=== PATIENT | male | born 1965 | race Caucasian/White ===

== ENCOUNTER 2018-11-10 23:53 | Observation (INO) | payer OTHER, BC ==
[~2018-11-10] VITALS: Ht 177.8 cm; Wt 90.7 kg
[2018-11-10 23:58] VITALS: BP_SYST 129
--- NOTE | 2018-11-10 23:58 | NUR ---
Pt BIB BLS, placed to ER bed 05, to gown. Per BLS, 's department called 911 as they found jpt wandering outside in the cold with only shorts on. Pt was approached and appeared confused. Pt arrives AAOX2, dishoveled only wearing thin shorts. When asked pt what he was doing, pt states "I was looking for photos."
--- NOTE | 2018-11-11 00:15 | NUR ---
Dr. Keene at bedside.
[2018-11-11 00:27] LABS: BASOPHILS # (AUTO) 0.1 K/uL (0.0-0.2); BASOPHILS % (AUTO) 0.9 % (0.0-2.0); EOSINOPHILS # (AUTO) 0.1 K/uL (0.0-0.4); EOSINOPHILS % (AUTO) 1.1 % (0.0-4.0); HEMATOCRIT 44.4 % (36-54); HEMOGLOBIN 14.9 g/dL (14.0-18.0); LYMPHOCYTES # (AUTO) 1.4 K/uL (1.0-5.5); LYMPHOCYTES % (AUTO) 19.7 % (20.5-51.5); MEAN CORPUSCULAR HEMOGLOBIN 32 pg (27-31); MEAN CORPUSCULAR HGB CONC 34 % (32-36); MEAN CORPUSCULAR VOLUME 96 fL (79.0-98.0); MONOCYTES # (AUTO) 0.4 K/uL (0.0-1.0); MONOCYTES % (AUTO) 5.2 % (1.7-9.3); NEUTROPHILS # (AUTO) 5.1 K/uL (1.8-7.7); NEUTROPHILS % (AUTO) 73.1 % (40.0-70.0); PLATELET COUNT (AUTO) 280 K/uL (130-430); RED BLOOD CELL COUNT(AUTO) 4.65 MIL/uL (4.2-6.2); RED CELL DISTRIBUTION WIDTH 12.5 % (9.0-15.0); WHITE BLOOD COUNT (AUTO) 7.1 K/uL (4.8-10.8)
[2018-11-11 00:33] LABS: ANION GAP 7 (5-15); CALCIUM 8.7 mg/dL (8.4-11.0); CHLORIDE 102 mmol/L (98-107); CREATININE 0.96 mg/dL (0.55-1.30); GLUCOSE 115 mg/dL (70-99); SODIUM SERUM 140 mmol/L (136-145); UREA NITROGEN, BLOOD 9 mg/dL (8-21)
--- NOTE | 2018-11-11 00:35 | NUR ---
Pt comes out of room wrapped in blankets. Pt reoriented to room.
[2018-11-11 00:38] LABS: ALANINE AMINOTRANSFERASE 25 U/L (12-78); ALBUMIN 3.2 g/dL (3.4-4.8); ASPARTATE AMINOTRANSFERASE 21 U/L (10-37); TOTAL BILIRUBIN 0.2 mg/dL (0.0-1.0)
[2018-11-11 00:44] LABS: ALCOHOL, BLOOD < 3 mg/dL (<10); GFR AFRICAN AMERICAN 105 mL/min (>90)
[2018-11-11 00:46] LABS: POTASSIUM 2.8 mmol/L (3.5-5.1)
--- NOTE | 2018-11-11 00:46 | NUR ---
Potassium 2.[address] Harrington. No new orders at this time.
[2018-11-11 00:52] LABS: ACETAMINOPHEN < 1 ug/mL (1-30)
--- NOTE | 2018-11-11 00:55 | NUR ---
Pt provided with urinal. Urine sample collected and sent to lab.
[2018-11-11] MEDS ORDERED: POTASSIUM CHLORIDE 20 MEQ TAB.PRT.SR PO ONE ×2 (01:15→16:15)
[2018-11-11] MEDS ORDERED: NACL 0.9% 1,000 ML IV ONE (01:15)
--- NOTE | 2018-11-11 01:15 | NUR ---
# 18 gauge angiocath placed to LAC. Use of asceptic technique. Opsite placed over site. Blood return noted. Blood for lab drawn from site. Flushed with 10 cc of normal saline. No evidence of infiltration noted. Patient tolerated well.
--- NOTE | 2018-11-11 01:40 | NUR ---
Patient will be admitted to care of [facility]. Admitted to Tele Obs unit. Will go to room 135. Summary report printed. Report will be given at bedside.
--- NOTE | 2018-11-11 02:36 | NUR ---
ADMISSION: The patient, TIMOTHY GOMEZ, 53 y/o, M admitted by RAJAN RANDLE MD, was given written information regarding hospital policies, unit procedures and contact persons.
--- NOTE | 2018-11-11 02:45 | NUR ---
SPONGE BATH: PT IS VERY DIRTY AND SMELLY ;SPONGE BATH / PERICARE GIVEN ,PT IS SHAKING , PT STATED HE IS VERY COLD ; VITALS ARE STABLE ; PT IS VERY ANXIOUS ALSO ;ASSESSMENT DONE ; IV ON THE LEFT AC 18 G , SL , NO S/S OF ANY INFILTRATION NOTED ; BED IN LOW AND LOCK POSIITON , CALL ZIEGLER IN REACH ; WILL CONTINUE TO MONITOR PT .
[2018-11-11 03:05] VITALS: BP_SYST 155
--- NOTE | 2018-11-11 03:10 | NUR ---
MEDICATION BOTTLES: PT BRING MULTIPLE BOTTLE OF MEDICATION MOST OF THEM ARE EMPTY , AMBIEN , ATIVAN AND DULOXETINE BOTTLE HAS MEDICATION , REMOVED THOSE BOTTLES WITH PTS PERMISSION FROM BED SIDE COUNTED WITH THE HELP OF EMMA MCCARTNEY ; WILL SENT TO PHARMACY IN AM
[2018-11-11 04:03] LABS: BARBITURATE, URINE NEGATIVE (NEG <=200); BENZODIAZEPINE, URINE POSITIVE (NEG <=150); CANNABINOID, URINE NEGATIVE (NEG <=50); COCAINE, URINE NEGATIVE (NEG <=150); METHAMPHETAMINES SCREEN,URINE NEGATIVE (NEG <=500); OPIATE, URINE NEGATIVE (NEG <=100); PHENCYCLIDINE SCREEN,URINE NEGATIVE (NEG <=25); UR TRICYCLIC ANTIDEPRESSANTS NEGATIVE (NEG <=300); URINE AMPHETAMINE NEGATIVE (NEG <=500); URINE METHADONE NEGATIVE (NEG <=200); URINE OXYCODONE SCREEN NEGATIVE (NEG <=100); URINE PROPOXYPHENE SCREEN NEGATIVE (NEG <=300)
--- NOTE | 2018-11-11 04:18 | NUR ---
PAGED PAGED WRITER PRODUCER PHYSICIAN, DR. RANDLE @ [phone], IN REGARD TO ORDERS AND SPOKE WITH LINUS.
--- NOTE | 2018-11-11 04:43 | NUR ---
MD CALLED : DR RANDLE CALLED BACK , INFORMED MD THAT PT IS C/O ACID REFLEX , STATED SHE WILL ENTER ORDER , ALSO INFORMED MD THAT PT IS VERY ANXIOUS AND AGITATED , GETTING OUT OF BED AND CONTINUOUSLY ASKING FOR SLEEPING PILL , STATED SHE WILL ENTER ORDER , ALSO NOTIFIED MD THAT PTS K 2.8 ONLY ER ONLY GIVEN K DUR 40 MEQ PO , STATED WILL REPEAT LABS AND WILL SEE . MD STATED SHE WILL ENTER ALL ORDERS .NOTIFIED PT .
[2018-11-11] MEDS ORDERED: ALBUTEROL SULFATE 0.083% 2.5 MG/3 ML VIAL.NEB INH PRN (04:45)
[2018-11-11] MEDS ORDERED: HYDROcodone/ACETAMIN 5-325 MG TAB (NORCO/ VICODIN) PO PRN (04:45)
[2018-11-11] MEDS ORDERED: POTASSIUM CHLORIDE 10 MEQ TAB.PRT.SR PO ONE (04:45)
[2018-11-11] MEDS ORDERED: ACETAMINOPHEN 325 MG TABLET PO PRN (04:45)
[2018-11-11] MEDS ORDERED: ONDANSETRON HCL 4 MG/2 ML VIAL IVP PRN (04:45)
[2018-11-11] MEDS ORDERED: LORazepam 2 MG/ML VIAL IVP ONE (04:45)
[2018-11-11] MEDS: PANTOPRAZOLE SODIUM 40 MG/VIAL (PROTONIX) IVP SCH ×2 (05:18→08:08)
[2018-11-11] MEDS: NACL 0.9% 1,000 ML IV SCH ×3 (05:25→17:23)
--- NOTE | 2018-11-11 05:25 | NUR ---
MEDICATION: DR RANDLE ORDERED ATIVAN 1 MG IVPUSH , K DUR 30 MEQ PO,AND PROTONIX , MEDICATED BY A.N . IV FLUID STARTED PER ORDER .
[2018-11-11 05:28] VITALS: BP_SYST 155
--- NOTE | 2018-11-11 06:50 | NUR ---
RN NOTES: PT IS SLEEPING , NOT IN ANY ACUTE DISTRESS; RESPIRATION IS EVEN AND NON LABORED ; WILL CONTINUE TO MONITOR PT .
--- NOTE | 2018-11-11 07:25 | NUR ---
CLOSING NOTES: REPORT GIVEN TO RN AT BEDSIDE , PT IS SLEEPING COMFORTABLY ,PT NOT IN ANY ACUTE DISTRESS.ALL NEEDS MET ; CALL ZIEGLER IN REACH . BED ALARM IS ON . PTS MEDICATION ENDORSED TO PHARMACY BY ADMITTING NURSE EMMA
--- NOTE | 2018-11-11 07:25 | NUR ---
Opening Note patient resting in bed, eyes closed, breathing unlabored and symmetrical, positioned on side, IV site patent, safety precautions in place, bed in lowest position with 3 side rails up, bedside table and call light within reach, room close to station, will continue to monitor
[2018-11-11 07:30] VITALS: BP_SYST 134
[2018-11-11 08:24] LABS: BASOPHILS % (AUTO) 0.3 % (0.0-2.0); EOSINOPHILS % (AUTO) 0.6 % (0.0-4.0); HEMATOCRIT 43.3 % (36-54); HEMOGLOBIN 14.4 g/dL (14.0-18.0); LYMPHOCYTES # (AUTO) 1.2 K/uL (1.0-5.5); LYMPHOCYTES % (AUTO) 17.2 % (20.5-51.5); MEAN CORPUSCULAR HEMOGLOBIN 32 pg (27-31); MEAN CORPUSCULAR HGB CONC 33 % (32-36); MEAN CORPUSCULAR VOLUME 96 fL (79.0-98.0); MONOCYTES # (AUTO) 0.3 K/uL (0.0-1.0); MONOCYTES % (AUTO) 4.9 % (1.7-9.3); NEUTROPHILS # (AUTO) 5.6 K/uL (1.8-7.7); PLATELET COUNT (AUTO) 279 K/uL (130-430); RED BLOOD CELL COUNT(AUTO) 4.52 MIL/uL (4.2-6.2); RED CELL DISTRIBUTION WIDTH 12.8 % (9.0-15.0); WHITE BLOOD COUNT (AUTO) 7.1 K/uL (4.8-10.8)
[2018-11-11 08:34] LABS: ANION GAP 6 (5-15); CALCIUM 8.6 mg/dL (8.4-11.0); CHLORIDE 104 mmol/L (98-107); CREATININE 0.88 mg/dL (0.55-1.30); GLUCOSE 101 mg/dL (70-99); POTASSIUM 3.4 mmol/L (3.5-5.1); SODIUM SERUM 141 mmol/L (136-145); UREA NITROGEN, BLOOD 6 mg/dL (8-21)
[2018-11-11 08:36] LABS: GFR AFRICAN AMERICAN 116 mL/min (>90)
[2018-11-11 08:45] LABS: ALANINE AMINOTRANSFERASE 27 U/L (12-78); ALBUMIN 3.2 g/dL (3.4-4.8); ASPARTATE AMINOTRANSFERASE 19 U/L (10-37); TOTAL BILIRUBIN 0.3 mg/dL (0.0-1.0)
--- NOTE | 2018-11-11 09:11 | NUR ---
CONSULTATION CALLED REASON FOR CONSULTATION:CONFUSION WAS CONSULT CALLED?Y PERSON WHO WAS NOTIFIED:IBIS CONSULTING PHYSICIAN:CARLITO PHIPPS POLYMER SCIENTIST SPECIALTY:NEURO POLYMER SCIENTIST PHONE NUMBER:[phone] ORDERING PHYSICIAN:AGA ORTEGA
--- NOTE | 2018-11-11 09:30 | NUR ---
Patient Resting in Bed eyes closed, breathing unlabored on room air, does not want to eat breakfast at this time, encouraged patient to eat breakfast but does not want to at this time, IV fluids infusing at this time, educated patient on safety precautions, verbalized understanding, call light and bedside table left within reach, room close to station, will continue to monitor patient
[2018-11-11] MEDS ORDERED: LORA-258 PO (11:14)
[2018-11-11] MEDS ORDERED: MIRT7.5T11 PO (11:14)
[2018-11-11] MEDS ORDERED: ZOLP10TA6 PO (11:15)
[2018-11-11] MEDS ORDERED: DULO60CA41 PO (11:16)
[2018-11-11] MEDS ORDERED: TRAZ300T11 PO (11:18)
[2018-11-11] MEDS ORDERED: TRAM100T34 PO (11:19)
--- NOTE | 2018-11-11 11:30 | NUR ---
IV PLACEMENT: #22 gauge angiocath placed to right hand by Reema TRAVIS. Use of asceptic technique. Opsite placed over site. Blood return noted. Flushed with 10 cc of normal saline. No evidence of infiltration noted. Patient tolerated well. patient was encouraged to practice saftey so IV catheter does not become dislodged again, verbalized understanding
[2018-11-11 12:10] VITALS: BP_SYST 146
--- NOTE | 2018-11-11 13:10 | NUR ---
Patient in Bed at this time, does not want to eat lunch at this time, denies pain, speech is slightly garbled, no complaints of pain at this time, educated patient on safety precautions, verbalized understanding, call light and bedside table left within reach, room close to station, will continue to monitor patient
--- NOTE | 2018-11-11 14:43 | NUR ---
Social Service Note: Pt referred to forensic social worker by physician due to homelessness and confusion. PHOTO TUBE ASSEMBLER met with pt at bedside; pt appears to be alert and oriented; pt cooperative with assessment and answering questions appropriately. Pt states that he is not sure how he ended up at the hospital. Pt denies any previous occurrences of confusion/disorientation. Pt states that he is currently staying in his motor-home; pt states that it is currently parked at [employer] [address]. Pt states that he and his are currently but they are going to therapy. Pt denies any history of mental illness; pt states that he is followed by Dr. Martínez and sees Dr. Martínez about once a month; pt cannot recall why he sees Dr. Martínez but states that he takes Ativan and Zolpidem. Pt denies any drug or alcohol use. PHOTO TUBE ASSEMBLER spoke with pt about homeless resources; pt states that he is not homeless and does not need any resources. PHOTO TUBE ASSEMBLER will remain available for support and will follow up as needed.
--- NOTE | 2018-11-11 15:45 | NUR ---
Dr. Egan Rounds at this time, will follow through with MD rios
--- NOTE | 2018-11-11 15:58 | NUR ---
Paged Dr. Meehan at this time to inquire if patient will be made inpatient status, will inform him about Dr. Egan's consultation, will await call back
[2018-11-11 16:04] VITALS: BP_SYST 135
--- NOTE | 2018-11-11 16:06 | NUR ---
Spoke with Dr. Meehan/Observation Status asked if he would like to keep the patient as observation or as inpatient, stated that patient can still stay over night and be considered as observation, stated to keep patient status as observation and will deal with it tomorrow. Also received other orders, will continue to monitor patient
[2018-11-11] MEDS ORDERED: OMEPRAZOLE 20 MG CAPSULE.DR (PriLOSEC) PO SCH (16:15)
--- NOTE | 2018-11-11 16:25 | NUR ---
Potassium Given At this time educated patient regarding med, verbalized understanding, informed him that gastric acid medication will be given later as scheduled, patient verbalized understanding, he is sitting up in bed, legs dangling, IV site remains patent, 350 mL taken from urinal. Educated patient on how to use hospital phone, verbalized understanding. Educated patient on safety and use of call light for assistance, verbalized understanding, call light and bedside table left within reach, will continue to monitor patient
--- NOTE | 2018-11-11 17:29 | NUR ---
Patient Being Taken to CT at this time, will assess when he returns
--- NOTE | 2018-11-11 18:55 | NUR ---
Closing Note patient resting in bed, eyes closed, breathing unlabored, symmetrical chest expansion, IV fluids infusing, site patent, safety precautions in place, room close to station, bedside table and call light left within reach, will endorse to nightclub manager nurse
--- NOTE | 2018-11-11 19:15 | NUR ---
OPENING NOTES Pt is awake, alert while lying in bed. Pt on IVF NS at 100ml/hr and infusing well on right hand G22. Pt states, "I need a sleeping pill because I couldn't sleep." Informed pt that I will call and inform the doctor. No complains of pain and no signs of acute distress noted. Encouraged to use call light when needed. Safety precautions in place with 3 side rails up, bed alarm on and at lowest level. Will continue to monitor.
[2018-11-11 20:05] VITALS: BP_SYST 136
[2018-11-11] MEDS: OMEPRAZOLE 20 MG CAPSULE.DR (PriLOSEC) PO SCH (20:10)
--- NOTE | 2018-11-11 20:15 | NUR ---
SPOKE TO DR. GUILLEN Spoke to Dr. Guillen over the phone, informed him about pt having trouble sleeping. Dr. Guillen ordered Restoril 15mg PO QHS. Read back order and will carry out.
[2018-11-11] MEDS ORDERED: TEMAZEPAM 15 MG CAPSULE PO SCH (21:00)
--- NOTE | 2018-11-11 23:00 | NUR ---
RESTING Pt is resting in bed with both eyes closed. With visible chest rise and fall with unlabored breathing noted. NO signs of acute distress noted. Safety precautions in place. Will continue to monitor.
--- NOTE | 2018-11-12 00:58 | NUR ---
PSYCH CONSULT CALLED Consult for Dr. Nuñez was called, he is out till 11/24/18; Dr. Rosales is business continuity global director [phone] RE psychosis Ava
--- NOTE | 2018-11-12 02:00 | NUR ---
RESTING Pt is resting in bed with both eyes closed. With visible chest rise and fall with unlabored breathing noted. No complains at this time. No signs of acute distress or SOB noted. Safety precautions in place. Will continue to monitor.
[2018-11-12 02:19] VITALS: BP_SYST 136
[2018-11-12] MEDS: NACL 0.9% 1,000 ML IV SCH (03:12)
--- NOTE | 2018-11-12 04:42 | NUR ---
RESTING Pt is resting in bed with both eyes closed. With visible chest rise and fall with unlabored breathing noted. NO signs of acute distress noted. Call light with pt and safety precautions in place. Will continue to monitor.
--- NOTE | 2018-11-12 06:25 | NUR ---
CLOSING NOTES Pt is resting in bed with both eyes closed. With visible chest rise and fall with unlabored breathing noted. NO signs of acute distress noted. All needs attended throughout the shift. Call light with pt and safety precautions in place. Will endorse to day shift nurse.
[2018-11-12 07:50] VITALS: BP_SYST 138
--- NOTE | 2018-11-12 07:50 | NUR ---
INITIAL ROUNDS Received pt AAOx4, no s/s resp distress, no c/o pain or discomfort. Plan of care for the day reviewed with pt-pt verbalized his understanding. IVF infusing well to right hand at ordered rate with no s/s infiltration to site. Pain management, low potassium, skin and safety discussed-teach back done. Pt observed ambulating to bathroom with steady gait. Call light within reach.
[2018-11-12] MEDS: OMEPRAZOLE 20 MG CAPSULE.DR (PriLOSEC) PO SCH (08:34)
--- NOTE | 2018-11-12 08:39 | NUR ---
Nutrition Update Nigel Scale 18 noted. Pt admitted for hypokalemia Diet: regular diet BMI: 28.7 kg/m2 RD to follow per nutrition care standards.
--- NOTE | 2018-11-12 10:22 | NUR ---
ROUNDS Pt resting quietly in bed with no s/s resp distress, no c/o pain or discomfort. No changes. Pt currently being seen by Dr. Meehan. Call light within reach.
[2018-11-12 11:19] VITALS: BP_SYST 132
--- NOTE | 2018-11-12 11:32 | NUR ---
AMBULATION Pt ambulated around nursing station with steady gait, no c/o dizziness or shortness of breath. Pt tolerated well.
[2018-11-12 11:34] VITALS: BP_SYST 138
--- NOTE | 2018-11-12 12:20 | NUR ---
PATIENT DISCHARGED Patient given medication reconciliation form and D/C instructions. Exit Care on Hypokalemia & Confusion explained and provided. Patient verbalized his understanding. MD discussed with patient the results and treatment provided. Ambulatory with steady gait for discharge to home. Patient in stable condition, ID band removed. IV catheter removed, intact and dressing applied, no active bleeding. Rx of given. All belongings sent with patient. Patient left floor ambulatory to private vehicle with his Jaqueline in no distress.
== END 2018-11-12 12:20 | disposition home or self-care (01) ==
LOC: SED 23:53 → STU 11-11 01:32
PROVIDERS: ADMIT Internal Medicine; ATTEND Internal Medicine
DX: R41.0 Disorientation, unspecified (principal); G35 Multiple sclerosis; K21.9 Gastro-esophageal reflux disease without esophagitis; J34.2 Deviated nasal septum; E87.6 Hypokalemia; F32.9 Major depressive disorder, single episode, unspecified; F41.9 Anxiety disorder, unspecified; Z59.0 Homelessness
CPT/HCPCS: 36415; 70450; 80053; 80307; 82607; 83735; 84443; 84484; 85025; 93005; 96361 ×2; 96374; 96375; 99285; C9113; G0378 ×2; G0480; G0481; G0482; J2060; J7030 ×2; 96360

== ENCOUNTER 2019-01-12 00:08 | Inpatient (IN) | payer OTHER, BC ==
[~2019-01-12] VITALS: Ht 177.8 cm; Wt 90.3 kg
[~2019-01-12 00:08] MED LIST: DULO60CA41 PO; LORA-258 PO; MIRT7.5T11 PO; TRAM100T34 PO; TRAZ300T11 PO; ZOLP10TA6 PO
[2019-01-12 00:13] VITALS: BP_SYST 157
[2019-01-12] MEDS ORDERED: NACL 0.9% 1,000 ML IV ONE (00:30)
[2019-01-12] MEDS ORDERED: ONDANSETRON HCL 4 MG/2 ML VIAL IVP ONE (00:30)
[2019-01-12] MEDS ORDERED: MAG HYDROX/AL HYDROX/SIMETH 30 ML, BELLADONNA ALKALOIDS/PHENOBARB 10 ML, LIDOCAINE VISC... PO ONE ×3 (01:00)
[2019-01-12] MEDS ORDERED: MORPHINE 4 MG/ML INJ. SYRINGE IVP ONE ×2 (01:00→01:45)
[2019-01-12 01:09] LABS: ANION GAP 10 (5-15); CALCIUM 8.9 mg/dL (8.4-11.0); CHLORIDE 102 mmol/L (98-107); CREATININE 1.04 mg/dL (0.55-1.30); GLUCOSE 105 mg/dL (70-99); SODIUM SERUM 143 mmol/L (136-145); UREA NITROGEN, BLOOD 11 mg/dL (8-21)
[2019-01-12 01:14] LABS: ALANINE AMINOTRANSFERASE 42 U/L (12-78); ALBUMIN 3.5 g/dL (3.4-4.8); ASPARTATE AMINOTRANSFERASE 40 U/L (10-37); LIPASE 224 U/L (73-393); TOTAL BILIRUBIN 0.4 mg/dL (0.0-1.0)
[2019-01-12 01:16] LABS: GFR AFRICAN AMERICAN 95 mL/min (>90); POTASSIUM 2.8 mmol/L (3.5-5.1)
[2019-01-12 01:17] LABS: ALCOHOL, BLOOD < 3 mg/dL (<10)
[2019-01-12 01:22] LABS: BILIRUBIN,URINE NEGATIVE (NEGATIVE); BLOOD, URINE NEGATIVE (NEGATIVE); CLARITY/URINE CLEAR (CLEAR); COLOR,URINE YELLOW (YELLOW); GLUCOSE,URINE NEGATIVE (NEGATIVE); KETONES,URINE NEGATIVE (NEGATIVE); LEUKOCYTE ESTERASE ,URINE NEGATIVE (NEGATIVE); NITRITE, URINE NEGATIVE (NEGATIVE); PH,URINE 6.5 (5.0-8.0); PROTEIN URINE NEGATIVE (NEGATIVE)
[2019-01-12 01:26] LABS: HEMATOCRIT 41.7 % (36-54); HEMOGLOBIN 14.5 g/dL (14.0-18.0); RED BLOOD CELL COUNT(AUTO) 4.53 MIL/uL (4.2-6.2); WHITE BLOOD COUNT (AUTO) 11.1 K/uL (4.8-10.8)
[2019-01-12 01:27] LABS: BASOPHILS % (AUTO) 0.3 % (0.0-2.0); EOSINOPHILS % (AUTO) 0.3 % (0.0-4.0); LYMPHOCYTES # (AUTO) 1.9 K/uL (1.0-5.5); LYMPHOCYTES % (AUTO) 17.4 % (20.5-51.5); MEAN CORPUSCULAR HEMOGLOBIN 32 pg (27-31); MEAN CORPUSCULAR HGB CONC 35 % (32-36); MEAN CORPUSCULAR VOLUME 92 fL (79.0-98.0); MONOCYTES # (AUTO) 0.9 K/uL (0.0-1.0); MONOCYTES % (AUTO) 7.7 % (1.7-9.3); NEUTROPHILS # (AUTO) 8.2 K/uL (1.8-7.7); NEUTROPHILS % (AUTO) 74.3 % (40.0-70.0); PLATELET COUNT (AUTO) 319 K/uL (130-430); RED CELL DISTRIBUTION WIDTH 14.1 % (9.0-15.0)
[2019-01-12] MEDS ORDERED: METOCLOPRAMIDE HCL 10 MG/2 ML VIAL IVP ONE (01:30)
[2019-01-12] MEDS ORDERED: POTASSIUM CHLORIDE 20 MEQ TAB.PRT.SR PO ONE ×2 (01:30→12:00)
[2019-01-12 01:31] LABS: BARBITURATE, URINE NEGATIVE (NEG <=200); BENZODIAZEPINE, URINE POSITIVE (NEG <=150); CANNABINOID, URINE NEGATIVE (NEG <=50); COCAINE, URINE NEGATIVE (NEG <=150); METHAMPHETAMINES SCREEN,URINE NEGATIVE (NEG <=500); OPIATE, URINE NEGATIVE (NEG <=100); PHENCYCLIDINE SCREEN,URINE NEGATIVE (NEG <=25); UR TRICYCLIC ANTIDEPRESSANTS NEGATIVE (NEG <=300); URINE AMPHETAMINE NEGATIVE (NEG <=500); URINE METHADONE NEGATIVE (NEG <=200); URINE OXYCODONE SCREEN NEGATIVE (NEG <=100); URINE PROPOXYPHENE SCREEN NEGATIVE (NEG <=300)
[2019-01-12] MEDS ORDERED: LORazepam 2 MG/ML VIAL (FOR ER USE) IVP ONE (02:00)
[2019-01-12 06:51] VITALS: BP_SYST 137
[2019-01-12 07:49] VITALS: BP_SYST 143
[2019-01-12 10:29] LABS: CALCIUM 8.5 mg/dL (8.4-11.0); CREATININE 1.09 mg/dL (0.55-1.30)
[2019-01-12] MEDS ORDERED: ONDANSETRON HCL 4 MG/2 ML VIAL IVP PRN (11:30)
[2019-01-12 12:02] VITALS: BP_SYST 133
[2019-01-12 16:25] VITALS: BP_SYST 134
[2019-01-12] MEDS ORDERED: LORATADINE 10 MG TABLET PO SCH (18:00)
[2019-01-12 19:50] VITALS: BP_SYST 127
[2019-01-12] MEDS: LORazepam 2 MG/ML VIAL IVP PRN (20:19)
[2019-01-13 03:29] VITALS: BP_SYST 138
[2019-01-13] MEDS: LORazepam 2 MG/ML VIAL IVP PRN (06:33)
[2019-01-13 08:00] VITALS: BP_SYST 130
[2019-01-13] MEDS ORDERED: LORATADINE 10 MG TABLET PO SCH (09:00)
[2019-01-13 09:45] VITALS: BP_SYST 130
[2019-01-13 12:26] VITALS: BP_SYST 115
== END 2019-01-13 11:08 | disposition home or self-care (01) | DRG 880 ==
LOC: SED 00:08 → STU 06:10
PROVIDERS: ADMIT Internal Medicine Hospice and Palliative Medicine; ATTEND Internal Medicine Hospice and Palliative Medicine
DX: F41.9 Anxiety disorder, unspecified (principal); G35 Multiple sclerosis; R07.0 Pain in throat; K59.00 Constipation, unspecified; E87.6 Hypokalemia; I10 Essential (primary) hypertension; Z90.49 Acquired absence of other specified parts of digestive tract
CPT/HCPCS: 36415; 80048; 80053; 80307; 81003; 83690-TC; 84484; 85025; 87081; 93005; 93306; 96361; 96374; 96375; 99285; G0378; G0482; J2001; J2060; J2270; J2405; J2765

== ENCOUNTER 2019-01-14 09:33 | Inpatient (IN) | payer OTHER, BC ==
[~2019-01-14] VITALS: Ht 177.8 cm; Wt 86.2 kg
[2019-01-14 09:51] VITALS: BP_SYST 154
[2019-01-14] MEDS ORDERED: NACL 0.9% 1,000 ML IV ONE (10:30)
[2019-01-14] MEDS ORDERED: BELLADONNA ALKALOIDS/PHENOBARB 5 ML UDC PO ONE (10:30)
[2019-01-14] MEDS ORDERED: PANTOPRAZOLE SODIUM 40 MG/VIAL (PROTONIX) IVP ONE (10:30)
[2019-01-14] MEDS ORDERED: LIDOCAINE VISCOUS 2%, 15 ML UDC MM ONE (10:30)
[2019-01-14] MEDS ORDERED: MAG-AL HYDROX/SIMETH 30 ML UDC PO ONE (10:30)
[2019-01-14 11:11] LABS: RED BLOOD CELL COUNT(AUTO) 4.82 MIL/uL (4.2-6.2); WHITE BLOOD COUNT (AUTO) 6.6 K/uL (4.8-10.8)
[2019-01-14 11:12] LABS: BASOPHILS % (AUTO) 0.4 % (0.0-2.0); EOSINOPHILS % (AUTO) 0.5 % (0.0-4.0); HEMATOCRIT 44.2 % (36-54); HEMOGLOBIN 15.6 g/dL (14.0-18.0); LYMPHOCYTES # (AUTO) 1.1 K/uL (1.0-5.5); LYMPHOCYTES % (AUTO) 17.2 % (20.5-51.5); MEAN CORPUSCULAR HEMOGLOBIN 32 pg (27-31); MEAN CORPUSCULAR HGB CONC 35 % (32-36); MEAN CORPUSCULAR VOLUME 92 fL (79.0-98.0); MONOCYTES % (AUTO) 7.5 % (1.7-9.3); NEUTROPHILS # (AUTO) 4.9 K/uL (1.8-7.7); NEUTROPHILS % (AUTO) 74.4 % (40.0-70.0); PLATELET COUNT (AUTO) 315 K/uL (130-430); RED CELL DISTRIBUTION WIDTH 14.2 % (9.0-15.0)
[2019-01-14 11:13] LABS: MONOCYTES # (AUTO) 0.5 K/uL (0.0-1.0)
[2019-01-14 11:14] LABS: CALCIUM 8.5 mg/dL (8.4-11.0); CREATININE 0.76 mg/dL (0.55-1.30)
[2019-01-14 11:19] LABS: ALBUMIN 3.4 g/dL (3.4-4.8); INR 0.9 (0.80-1.20); PROTHROMBIN TIME 9.1 SECS (9.5-12.5); TOTAL BILIRUBIN 0.4 mg/dL (0.0-1.0)
[2019-01-14 11:20] LABS: POTASSIUM 2.5 mmol/L (3.5-5.1)
[2019-01-14] MEDS ORDERED: POTASSIUM CHLORIDE 20 MEQ TAB.PRT.SR PO ONE ×2 (11:30→20:00)
[2019-01-14] MEDS ORDERED: KETOROLAC TROMETHAMINE 30 MG VIAL IVP ONE (11:45)
[2019-01-14 13:09] VITALS: BP_SYST 138
[2019-01-14] MEDS: MORPHINE 4 MG/ML INJ. SYRINGE IVP PRN ×3 (14:30→22:19)
[2019-01-14 17:40] LABS: CALCIUM 8.2 mg/dL (8.4-11.0); CREATININE 0.98 mg/dL (0.55-1.30); POTASSIUM 3.2 mmol/L (3.5-5.1)
[2019-01-14 21:00] VITALS: BP_SYST 146
[2019-01-14] MEDS ORDERED: ZOLPIDEM TARTRATE 5 MG TABLET PO SCH (21:00)
[2019-01-15 03:02] VITALS: BP_SYST 116; BP_SYST 144
[2019-01-15] MEDS: MORPHINE 4 MG/ML INJ. SYRINGE IVP PRN ×2 (05:17→10:57)
[2019-01-15 08:16] VITALS: BP_SYST 108
[2019-01-15 11:22] VITALS: BP_SYST 143
[2019-01-15] MEDS ORDERED: PRO40 PO (13:21)
[2019-01-15 14:07] LABS: CALCIUM 8.6 mg/dL (8.4-11.0); CREATININE 0.84 mg/dL (0.55-1.30); POTASSIUM 3.3 mmol/L (3.5-5.1)
[2019-01-15 14:23] LABS: THYROID STIMULATING HORMONE 0.37 uIu/mL (0.34-4.82)
[2019-01-15 15:00] VITALS: BP_SYST 149
[2019-01-15] MEDS ORDERED: POTASSIUM CHLORIDE 20 MEQ TAB.PRT.SR PO ONE (15:00)
== END 2019-01-15 15:30 | disposition home or self-care (01) | DRG 392 ==
LOC: SED 09:33 → STU 12:28 → SMU 01-15 09:46
PROVIDERS: ADMIT Internal Medicine Hospice and Palliative Medicine; ATTEND Internal Medicine Hospice and Palliative Medicine
DX: K21.9 Gastro-esophageal reflux disease without esophagitis (principal); E87.1 Hypo-osmolality and hyponatremia; R07.0 Pain in throat; G35 Multiple sclerosis; F41.9 Anxiety disorder, unspecified; K44.9 Diaphragmatic hernia without obstruction or gangrene; I10 Essential (primary) hypertension; E87.6 Hypokalemia; F32.9 Major depressive disorder, single episode, unspecified; R49.0 Dysphonia
CPT/HCPCS: 36415; 70490; 80048; 80053; 84295-TC; 84443-TC; 85025; 85610-TC; 85730-TC; 86403; 87081; 96361; 96374; 96375; 99285; C9113; G0378; J1885; J2001; J2270; J7030

== ENCOUNTER 2019-01-16 08:39 | Emergency (ER) | payer OTHER, BC ==
[~2019-01-16] VITALS: Ht 177.8 cm; Wt 86.2 kg
[~2019-01-16 08:39] MED LIST changes: -DULO60CA41 PO; -LORA-258 PO; -MIRT7.5T11 PO; +PRO40 PO; -TRAM100T34 PO; -TRAZ300T11 PO; -ZOLP10TA6 PO
[2019-01-16 08:40] VITALS: BP_SYST 163
== END 2019-01-16 08:59 | disposition left against medical advice (07) ==
LOC: SED 08:39
DX: R11.0 Nausea (principal); R42 Dizziness and giddiness; Z53.21 Procedure and treatment not carried out due to patient leaving prior to being seen by health care provider

== ENCOUNTER 2019-02-04 19:52 | Emergency (ER) | payer OTHER, BC ==
[~2019-02-04] VITALS: Ht 177.8 cm; Wt 86.2 kg
[2019-02-04] MEDS ORDERED: LIDOCAINE VISCOUS 2%, 15 ML UDC MM ONE (20:15)
[2019-02-04] MEDS ORDERED: MAG-AL HYDROX/SIMETH 30 ML UDC PO ONE (20:15)
[2019-02-04 20:16] VITALS: BP_SYST 148
[2019-02-04] MEDS ORDERED: KETOROLAC TROMETHAMINE 60 MG/2 ML VIAL IM ONE (20:30)
[2019-02-04] MEDS ORDERED: LORazepam 2 MG/ML VIAL (FOR ER USE) IM ONE (21:00)
[2019-02-04 21:43] VITALS: BP_SYST 136
== END 2019-02-04 21:43 | disposition home or self-care (01) ==
LOC: SED 19:52
DX: K21.9 Gastro-esophageal reflux disease without esophagitis (principal); I10 Essential (primary) hypertension; F41.9 Anxiety disorder, unspecified
CPT/HCPCS: 96372; 96374; 99283; J1885; J2001; J2060

== ENCOUNTER 2019-02-06 05:50 | Emergency (ER) | payer OTHER, BC ==
[~2019-02-06] VITALS: Ht 177.8 cm; Wt 86.2 kg
--- NOTE | 2019-02-06 05:50 | NUR ---
0550 - Patient to ER bed 5 to gown for evaluation. Side rails up.
--- NOTE | 2019-02-06 05:50 | NUR ---
Zach gerard in ED - 02/06/19 at 0600 by [email or web address] 0550 - DEREK Craig at bedside examining patient.
[2019-02-06 05:54] VITALS: BP_SYST 150
--- NOTE | 2019-02-06 05:54 | NUR ---
0554 - Pt briana from [place] [id number] where he is currently staying. Pt familiar to primary RN from previous visit. Pt is A&OX4, resp even and unlabored. No distress. States pain 08/21. Hx of severe GERD w/ scarring to throat. Will continue to monitor.
--- NOTE | 2019-02-06 06:00 | NUR ---
0600 - ER at bedside examining patient.
[2019-02-06] MEDS ORDERED: MAG HYDROX/AL HYDROX/SIMETH 30 ML, BELLADONNA ALKALOIDS/PHENOBARB 10 ML, LIDOCAINE VISC... PO ONE ×3 (06:15)
[2019-02-06] MEDS ORDERED: LORazepam 1 MG TABLET PO ONE (06:15)
--- NOTE | 2019-02-06 07:07 | NUR ---
0707 - Called pt's Zoe to leaf size picker pt. No answer, left message. Will advise for day shift to call again. Zoe cell [phone] [phone]
--- NOTE | 2019-02-06 07:11 | NUR ---
0711 - Report given to ANGY Whitehead.
[2019-02-06 07:45] VITALS: BP_SYST 140
--- NOTE | 2019-02-06 07:45 | NUR ---
Patient given written and verbal discharge instructions and verbalizes understanding. ER MD discussed with patient the results and treatment provided. Patient in stable condition. ID arm band removed. No Rx given. Patient educated on pain management and to follow up with PMD. Pain Scale 0. Opportunity for questions provided and answered. Medication side effect fact sheet provided.
--- NOTE | 2019-02-06 08:10 | NUR ---
SPOKE WITH PTS AT GIVEN NUMBER, SHE STATES THAT SHE DID NOT EVEN KNOW PT WAS IN THE HOSPITAL AND CAN NOT COME GET HIM, SHE HAS TO GO TO WORK. SHE WILL ASK HER BROTHER TO COME GET PT.
--- NOTE | 2019-02-06 08:24 | NUR ---
PT LEFT WITH BROTHER IN PRIVATE AUTO
== END 2019-02-06 07:45 | disposition home or self-care (01) ==
LOC: SED 05:50
DX: R13.10 Dysphagia, unspecified (principal); F41.9 Anxiety disorder, unspecified; I10 Essential (primary) hypertension
CPT/HCPCS: 99283; J2001

== ENCOUNTER 2019-02-07 16:00 | Emergency (ER) | payer OTHER, BC ==
[~2019-02-07] VITALS: Ht 177.8 cm; Wt 86.2 kg
[2019-02-07 16:00] VITALS: BP_SYST 138
[2019-02-07] MEDS ORDERED: LORazepam 1 MG TABLET PO ONE (16:15)
[2019-02-07] MEDS ORDERED: DIPHENHYDRAMINE HCL 25 MG CAPSULE PO ONE (16:15)
[2019-02-07] MEDS ORDERED: IBUPROFEN 600 MG TABLET PO ONE (16:15)
[2019-02-07 17:25] VITALS: BP_SYST 138
== END 2019-02-07 17:25 | disposition home or self-care (01) ==
LOC: SED 16:00
DX: F41.0 Panic disorder [episodic paroxysmal anxiety] (principal); I10 Essential (primary) hypertension
CPT/HCPCS: 99284; Q0163

== ENCOUNTER 2019-02-09 06:58 | Emergency (ER) | payer OTHER, BC ==
[~2019-02-09] VITALS: Ht 177.8 cm; Wt 86.2 kg
[2019-02-09 07:19] VITALS: BP_SYST 182
[2019-02-09] MEDS ORDERED: ACETAMINOPHEN 500 MG TABLET PO ONE (08:00)
[2019-02-09] MEDS ORDERED: cefTRIAXone 1 GM VIAL IM ONE (08:00)
[2019-02-09] MEDS ORDERED: LIDOCAINE 1%, 20 ML MDV 20 ML ONE (08:21)
[2019-02-09] MEDS ORDERED: LIDOCAINE 1% 10 MG/ML, 20 ML MDV INJ ONE (08:30)
[2019-02-09 08:50] VITALS: BP_SYST 141
== END 2019-02-09 08:50 | disposition home or self-care (01) ==
LOC: SED 06:58
DX: J01.90 Acute sinusitis, unspecified (principal); J02.9 Acute pharyngitis, unspecified; L03.119 Cellulitis of unspecified part of limb; F41.9 Anxiety disorder, unspecified; I10 Essential (primary) hypertension
CPT/HCPCS: 96372; 99283; J0696; J2001

== ENCOUNTER 2019-02-12 04:15 | Emergency (ER) | payer OTHER, BC ==
[~2019-02-12] VITALS: Ht 177.8 cm; Wt 81.6 kg
[2019-02-12 04:20] VITALS: BP_SYST 139
[2019-02-12] MEDS ORDERED: LORazepam 1 MG TABLET PO ONE (05:00)
[2019-02-12] MEDS ORDERED: ZOLPIDEM TARTRATE 5 MG TABLET PO ONE ×2 (05:00→05:30)
[2019-02-12] MEDS ORDERED: ZOLPIDEM TARTRATE 5 MG TABLET ONE (05:12)
[2019-02-12 05:28] VITALS: BP_SYST 129
== END 2019-02-12 05:28 | disposition home or self-care (01) ==
LOC: SED 04:15
DX: K21.9 Gastro-esophageal reflux disease without esophagitis (principal); L03.116 Cellulitis of left lower limb; R07.0 Pain in throat; F41.9 Anxiety disorder, unspecified; I10 Essential (primary) hypertension
CPT/HCPCS: 99283

== ENCOUNTER 2019-02-12 20:50 | Emergency (ER) | payer OTHER, BC ==
[~2019-02-12] VITALS: Ht 177.8 cm; Wt 86.2 kg
[2019-02-12 20:57] VITALS: BP_SYST 157
== END 2019-02-13 00:35 | disposition left against medical advice (07) ==
LOC: SED 20:50
DX: J02.9 Acute pharyngitis, unspecified (principal); F41.9 Anxiety disorder, unspecified; I10 Essential (primary) hypertension
CPT/HCPCS: 99281

== ENCOUNTER 2019-03-03 06:53 | Emergency (ER) | payer OTHER, BC ==
[~2019-03-03] VITALS: Ht 177.8 cm; Wt 86.2 kg
[2019-03-03 07:21] VITALS: BP_SYST 161
[2019-03-03] MEDS: LORazepam 2 MG/ML VIAL (FOR ER USE) IM ONE (07:55)
[2019-03-03 08:38] VITALS: BP_SYST 161
== END 2019-03-03 08:37 | disposition home or self-care (01) ==
LOC: SED 06:53
DX: F41.9 Anxiety disorder, unspecified (principal); J02.9 Acute pharyngitis, unspecified; I10 Essential (primary) hypertension; Z76.5 Malingerer [conscious simulation]
CPT/HCPCS: 36415; 86403; 87081; 96372; 99284; J2060; 99283

== ENCOUNTER 2019-03-05 01:55 | Emergency (ER) | payer OTHER, BC ==
[~2019-03-05] VITALS: Ht 180.3 cm; Wt 81.6 kg
--- NOTE | 2019-03-05 02:15 | NUR ---
0215 - Patient to ER bed 5 to gown for evaluation. Side rails up. Report given to ANGY Zepeda.
--- NOTE | 2019-03-05 02:25 | NUR ---
0225 - ER at bedside examining patient.
[2019-03-05] MEDS ORDERED: KETOROLAC TROMETHAMINE 30 MG VIAL IM ONE (02:30)
[2019-03-05] MEDS ORDERED: LORazepam 1 MG TABLET PO ONE (02:30)
--- NOTE | 2019-03-05 02:48 | NUR ---
0248 - Patient given written and verbal discharge instructions and verbalizes understanding. ER MD discussed with patient the results and treatment provided. Patient in stable condition. ID arm band removed. Patient educated on pain management and to follow up with PMD. Opportunity for questions provided and answered. Medication side effect fact sheet provided.
== END 2019-03-05 02:48 | disposition home or self-care (01) ==
LOC: SED 01:55
DX: K21.9 Gastro-esophageal reflux disease without esophagitis (principal); R07.0 Pain in throat; F41.9 Anxiety disorder, unspecified; I10 Essential (primary) hypertension
CPT/HCPCS: 96372; 99283; J1885

== ENCOUNTER 2019-03-09 14:45 | Emergency (ER) | payer OTHER, BC ==
[~2019-03-09] VITALS: Ht 177.8 cm; Wt 81.6 kg
[2019-03-09 14:45] VITALS: BP_SYST 154
[2019-03-09] MEDS ORDERED: KETOROLAC TROMETHAMINE 60 MG/2 ML VIAL IM ONE (15:15)
[2019-03-09 15:52] VITALS: BP_SYST 154
== END 2019-03-09 15:47 | disposition home or self-care (01) ==
LOC: SED 14:45
DX: R07.0 Pain in throat (principal); G89.18 Other acute postprocedural pain; I10 Essential (primary) hypertension; K21.9 Gastro-esophageal reflux disease without esophagitis; F41.9 Anxiety disorder, unspecified; Z90.49 Acquired absence of other specified parts of digestive tract
CPT/HCPCS: 96372; 99283; J1885

== ENCOUNTER 2019-03-11 17:12 | Emergency (ER) | payer OTHER, BC ==
[~2019-03-11] VITALS: Ht 177.8 cm; Wt 81.6 kg
[2019-03-11 17:20] VITALS: BP_SYST 164
[2019-03-11] MEDS ORDERED: KETOROLAC TROMETHAMINE 60 MG/2 ML VIAL IM ONE (17:30)
[2019-03-11 17:59] VITALS: BP_SYST 145
== END 2019-03-11 17:59 | disposition home or self-care (01) ==
LOC: SED 17:12
DX: R07.0 Pain in throat (principal); G89.29 Other chronic pain; K21.9 Gastro-esophageal reflux disease without esophagitis; I10 Essential (primary) hypertension; F41.9 Anxiety disorder, unspecified
CPT/HCPCS: 96372; 99283; J1885

== ENCOUNTER 2019-03-12 23:32 | Emergency (ER) | payer OTHER, BC ==
[~2019-03-12] VITALS: Ht 177.8 cm; Wt 81.6 kg
[2019-03-12 23:35] VITALS: BP_SYST 132
[2019-03-13] MEDS ORDERED: KETOROLAC TROMETHAMINE 60 MG/2 ML VIAL IM ONE (01:15)
[2019-03-13] MEDS ORDERED: DIPHENHYDRAMINE HCL 25 MG CAPSULE PO ONE (01:15)
[2019-03-13] MEDS ORDERED: MORPHINE 4 MG/ML INJ. SYRINGE IM ONE (01:15)
[2019-03-13 02:00] VITALS: BP_SYST 130
== END 2019-03-13 02:00 | disposition home or self-care (01) ==
LOC: SED 23:32
DX: J02.9 Acute pharyngitis, unspecified (principal); K21.9 Gastro-esophageal reflux disease without esophagitis; I10 Essential (primary) hypertension; F41.9 Anxiety disorder, unspecified; Z90.49 Acquired absence of other specified parts of digestive tract
CPT/HCPCS: 96372; 99283; J1885; J2270; Q0163

== ENCOUNTER 2019-04-03 21:33 | Emergency (ER) | payer OTHER, BC ==
[~2019-04-03] VITALS: Ht 177.8 cm; Wt 90.7 kg
[2019-04-03 21:48] VITALS: BP_SYST 152
[2019-04-03] MEDS ORDERED: MAG HYDROX/AL HYDROX/SIMETH 30 ML, DICYCLOMINE HCL 20 MG, LIDOCAINE VISCOUS 2% 15ML (PO... PO ONE ×3 (22:15)
[2019-04-03 22:29] LABS: BASOPHILS # (AUTO) 0.1 K/uL (0.0-0.2); BASOPHILS % (AUTO) 0.7 % (0.0-2.0); EOSINOPHILS # (AUTO) 0.1 K/uL (0.0-0.4); EOSINOPHILS % (AUTO) 0.8 % (0.0-4.0); HEMATOCRIT 45.9 % (36-54); HEMOGLOBIN 15.4 g/dL (14.0-18.0); LYMPHOCYTES # (AUTO) 2.5 K/uL (1.0-5.5); LYMPHOCYTES % (AUTO) 30.6 % (20.5-51.5); MEAN CORPUSCULAR HEMOGLOBIN 32 pg (27-31); MEAN CORPUSCULAR HGB CONC 34 % (32-36); MEAN CORPUSCULAR VOLUME 96 fL (79.0-98.0); MONOCYTES # (AUTO) 0.8 K/uL (0.0-1.0); MONOCYTES % (AUTO) 9.9 % (1.7-9.3); NEUTROPHILS # (AUTO) 4.7 K/uL (1.8-7.7); PLATELET COUNT (AUTO) 375 K/uL (130-430); RED BLOOD CELL COUNT(AUTO) 4.78 MIL/uL (4.2-6.2); RED CELL DISTRIBUTION WIDTH 14.1 % (9.0-15.0); WHITE BLOOD COUNT (AUTO) 8.1 K/uL (4.8-10.8)
[2019-04-03 22:54] LABS: ALBUMIN 3.7 g/dL (3.4-4.8); CALCIUM 9.1 mg/dL (8.4-11.0); CREATININE 1.19 mg/dL (0.55-1.30); POTASSIUM 3.7 mmol/L (3.5-5.1); TOTAL BILIRUBIN 0.2 mg/dL (0.0-1.0)
[2019-04-03 23:15] VITALS: BP_SYST 152
[2019-04-03] MEDS ORDERED: KETOROLAC TROMETHAMINE 30 MG VIAL IM ONE (23:15)
== END 2019-04-03 23:15 | disposition home or self-care (01) ==
LOC: SED 21:33
DX: K21.9 Gastro-esophageal reflux disease without esophagitis (principal); L03.116 Cellulitis of left lower limb; I10 Essential (primary) hypertension; F41.9 Anxiety disorder, unspecified; Z90.49 Acquired absence of other specified parts of digestive tract
CPT/HCPCS: 36415; 80053; 85025; 96372; 99283; J1885; J2001

== ENCOUNTER 2019-04-13 06:31 | Emergency (ER) | payer OTHER, BC ==
[~2019-04-13] VITALS: Ht 177.8 cm; Wt 86.2 kg
[2019-04-13 06:37] VITALS: BP_SYST 164
--- NOTE | 2019-04-13 06:40 | NUR ---
Pt placed to ER bed 05, report given to ANGY Carver.
--- NOTE | 2019-04-13 06:50 | NUR ---
Pt complains of sore throat for the past four years. Pt was seen for his endoscopy and was told he was negative for cancer. Pt states he has not been sleeping for the past few days due to pain and that he does not have any pain medications. Pt states he has another appointment with his doctor. No other injuries/complaints per patient or noted.
--- NOTE | 2019-04-13 06:56 | NUR ---
ER Dr. Logan at bedside examining patient.
[2019-04-13] MEDS ORDERED: MORPHINE 4 MG/ML INJ. SYRINGE IM ONE (07:00)
[2019-04-13] MEDS ORDERED: ONDANSETRON HCL 4 MG/2 ML VIAL IM ONE (07:00)
--- NOTE | 2019-04-13 07:12 | NUR ---
Report given to Cecil RN and ANGY Mendez.
[2019-04-13 07:50] VITALS: BP_SYST 164
--- NOTE | 2019-04-13 07:50 | NUR ---
Patient given written and verbal discharge instructions and verbalizes understanding. ER MD discussed with patient the results and treatment provided. Patient in stable condition. ID arm band removed. Patient educated on pain management and to follow up with PMD. Pain Scale 4/10 MD made aware. Opportunity for questions provided and answered. Medication side effect fact sheet provided.
== END 2019-04-13 07:50 | disposition home or self-care (01) ==
LOC: SED 06:31
DX: G89.29 Other chronic pain (principal); R07.0 Pain in throat; K21.9 Gastro-esophageal reflux disease without esophagitis; I10 Essential (primary) hypertension; F41.9 Anxiety disorder, unspecified
CPT/HCPCS: 96372; 99283; J2270; J2405

== ENCOUNTER 2019-04-26 18:22 | Emergency (ER) | payer OTHER, BC ==
[~2019-04-26] VITALS: Ht 177.8 cm; Wt 88.5 kg
[2019-04-26 18:31] VITALS: BP_SYST 130
--- NOTE | 2019-04-26 18:59 | NUR ---
Patient to ER bed 4 to gown for evaluation. Side rails up.
--- NOTE | 2019-04-26 18:59 | NUR ---
Pt swelling and pain to Bilat ankles upon awakening this AM. 2+ pitting edema noted to bilat ankles. Pt states that he was seen at [facility] today at 1200 for same issue and was Rx Bactrim and Keflex. Pt states that symptoms became worse leading to his visit to [facility] ER. Pt states that he has a hx of cellulitis to bilat ankles and has previously been tx with antibiotics.
--- NOTE | 2019-04-26 19:49 | NUR ---
ER at bedside examining patient.
[2019-04-26 20:30] LABS: BASOPHILS # (AUTO) 0.1 K/uL (0.0-0.2); BASOPHILS % (AUTO) 0.8 % (0.0-2.0); EOSINOPHILS # (AUTO) 0.1 K/uL (0.0-0.4); HEMATOCRIT 41.1 % (36-54); HEMOGLOBIN 14.1 g/dL (14.0-18.0); LYMPHOCYTES # (AUTO) 1.7 K/uL (1.0-5.5); LYMPHOCYTES % (AUTO) 24.1 % (20.5-51.5); MEAN CORPUSCULAR HEMOGLOBIN 33 pg (27-31); MEAN CORPUSCULAR HGB CONC 34 % (32-36); MEAN CORPUSCULAR VOLUME 95 fL (79.0-98.0); MONOCYTES # (AUTO) 0.6 K/uL (0.0-1.0); MONOCYTES % (AUTO) 8.4 % (1.7-9.3); NEUTROPHILS # (AUTO) 4.6 K/uL (1.8-7.7); NEUTROPHILS % (AUTO) 65.7 % (40.0-70.0); PLATELET COUNT (AUTO) 291 K/uL (130-430); RED BLOOD CELL COUNT(AUTO) 4.32 MIL/uL (4.2-6.2); RED CELL DISTRIBUTION WIDTH 13.9 % (9.0-15.0); WHITE BLOOD COUNT (AUTO) 6.9 K/uL (4.8-10.8)
[2019-04-26 20:40] LABS: CREATININE 0.94 mg/dL (0.55-1.30); POTASSIUM 3.6 mmol/L (3.5-5.1)
[2019-04-26 20:44] LABS: ALBUMIN 3.8 g/dL (3.4-4.8); TOTAL BILIRUBIN 0.2 mg/dL (0.0-1.0)
[2019-04-26 22:05] VITALS: BP_SYST 126
--- NOTE | 2019-04-26 22:05 | NUR ---
Patient given written and verbal discharge instructions and verbalizes understanding. ER MD discussed with patient the results and treatment provided. Patient in stable condition. ID arm band removed. Rx of Valium given. Patient educated on pain management and to follow up with PMD. Pain Scale 0/10. Opportunity for questions provided and answered. Medication side effect fact sheet provided.
== END 2019-04-26 22:05 | disposition home or self-care (01) ==
LOC: SED 18:22
DX: R60.0 Localized edema (principal); G47.00 Insomnia, unspecified; K21.9 Gastro-esophageal reflux disease without esophagitis; I10 Essential (primary) hypertension; F41.9 Anxiety disorder, unspecified
CPT/HCPCS: 36415; 80053; 83880; 85025; 99283

== ENCOUNTER 2019-05-12 18:29 | Emergency (ER) | payer OTHER, BC ==
[~2019-05-12] VITALS: Ht 177.8 cm; Wt 90.7 kg
[2019-05-12 18:30] VITALS: BP_SYST 144
--- NOTE | 2019-05-12 18:30 | NUR ---
BROUGHT BACK TO BED #4 AND TRIAGED. REPORT GIVEN TO KIT
--- NOTE | 2019-05-12 18:35 | NUR ---
Patient brought in by self. Patient complaining of chronic sore throat. Patient will be having surgery in [facility] on May 29 on vocal chords. Patient requesting pain medication. Pain 08/21. No other complaints/injuries per patient or as noted. Will continue to monitor.
--- NOTE | 2019-05-12 18:45 | NUR ---
Pt came into ED for soreness of throat that he says is caused by chronic acid reflux. Pt states he is having surgery to reduce acid reflux on 05/29. Pt denies n/v/d. pt is A&Ox4. Will continue to monitor.
--- NOTE | 2019-05-12 19:35 | NUR ---
Pt moved to [place] [id number]
--- NOTE | 2019-05-12 20:23 | NUR ---
ER Dr. Hoskins at bedside examining patient.
--- NOTE | 2019-05-12 20:24 | NUR ---
Zach gerard in ED - 05/12/19 at 6 by SDEDVS DEREK HEMPHILL at bedside examining patient.
[2019-05-12] MEDS ORDERED: MORPHINE 4 MG/ML INJ. SYRINGE IM ONE (20:30)
[2019-05-12 20:50] VITALS: BP_SYST 144
--- NOTE | 2019-05-12 20:50 | NUR ---
Patient given written and verbal discharge instructions and verbalizes understanding. ER MD discussed with patient the results and treatment provided. Patient in stable condition. ID arm band removed. Patient educated on pain management and to follow up with PMD. Pain Scale 0/10. Opportunity for questions provided and answered. Medication side effect fact sheet provided.
== END 2019-05-12 20:50 | disposition home or self-care (01) ==
LOC: SED 18:29
DX: K21.0 Gastro-esophageal reflux disease with esophagitis (principal); I10 Essential (primary) hypertension; F41.9 Anxiety disorder, unspecified
CPT/HCPCS: 96374; 99283; J2270

== ENCOUNTER 2019-07-05 23:42 | Emergency (ER) | payer OTHER, BC ==
[~2019-07-05] VITALS: Ht 177.8 cm; Wt 86.2 kg
[2019-07-05 23:59] VITALS: BP_SYST 144
--- NOTE | 2019-07-06 00:05 | NUR ---
Pt placed to ER waiting room in stable condition.
--- NOTE | 2019-07-06 03:02 | NUR ---
Pt placed to ER bed 05. Report given to ANGY Zepeda.
--- NOTE | 2019-07-06 03:05 | NUR ---
Pt C/O sore throat, bodyaches and difficulty sleeping x 3 days. Pt denies any SOB, N/V/D, fever, chills or any other symptoms at this time. Will continue to monitor.
--- NOTE | 2019-07-06 03:10 | NUR ---
ER Dr. Harrington at bedside examining patient.
--- NOTE | 2019-07-06 03:31 | NUR ---
Patient given written and verbal discharge instructions and verbalizes understanding. ER MD discussed with patient the results and treatment provided. Patient in stable condition. ID arm band removed. Rx of Tramadol and Ambien given. Patient educated on pain management and to follow up with PMD. Pain Scale 0. Opportunity for questions provided and answered. Medication side effect fact sheet provided.
[2019-07-06 03:32] VITALS: BP_SYST 138
== END 2019-07-06 03:32 | disposition home or self-care (01) ==
LOC: SED 23:42
DX: R19.7 Diarrhea, unspecified (principal); G47.00 Insomnia, unspecified; R10.30 Lower abdominal pain, unspecified; K21.9 Gastro-esophageal reflux disease without esophagitis; I10 Essential (primary) hypertension
CPT/HCPCS: 99283

== ENCOUNTER 2019-07-11 19:08 | Inpatient (IN) | payer OTHER, BC ==
[~2019-07-11] VITALS: Ht 177.8 cm; Wt 93.0 kg
[2019-07-11 19:14] VITALS: BP_SYST 121
[2019-07-11 20:59] LABS: BASOPHILS % (AUTO) 0.2 % (0.0-2.0); EOSINOPHILS % (AUTO) 0.3 % (0.0-4.0); HEMATOCRIT 41.9 % (36-54); HEMOGLOBIN 14.4 g/dL (14.0-18.0); LYMPHOCYTES % (AUTO) 11.8 % (20.5-51.5); MEAN CORPUSCULAR HEMOGLOBIN 33 pg (27-31); MEAN CORPUSCULAR HGB CONC 34 % (32-36); MEAN CORPUSCULAR VOLUME 96 fL (79.0-98.0); MONOCYTES # (AUTO) 0.4 K/uL (0.0-1.0); MONOCYTES % (AUTO) 5.4 % (1.7-9.3); NEUTROPHILS # (AUTO) 6.8 K/uL (1.8-7.7); NEUTROPHILS % (AUTO) 82.3 % (40.0-70.0); PLATELET COUNT (AUTO) 262 K/uL (130-430); RED BLOOD CELL COUNT(AUTO) 4.37 MIL/uL (4.2-6.2); RED CELL DISTRIBUTION WIDTH 12.7 % (9.0-15.0); WHITE BLOOD COUNT (AUTO) 8.2 K/uL (4.8-10.8)
[2019-07-11 21:08] LABS: CREATININE 1.11 mg/dL (0.55-1.30); INR 0.9 (0.80-1.20)
[2019-07-11 21:14] LABS: ALBUMIN 3.9 g/dL (3.4-4.8); TOTAL BILIRUBIN 0.2 mg/dL (0.0-1.0)
[2019-07-11 21:39] LABS: CKMB RELATIVE INDEX 2.1 (0.0-2.9); CREATINE KINASE MB 6.9 ng/mL (0-3.6)
--- NOTE | 2019-07-11 22:00 | NUR ---
Patient to ER bed 6 to gown for evaluation. Side rails up.
--- NOTE | 2019-07-11 22:10 | NUR ---
Pt came to the ED for SOB which started earlier this morning. Reports that body aches is 9/10. Reports endoscopt that was done showed esophagus is closing. Denies n/v/d or fever. No other complaints/injuries noted. Will cont. to monitor.
[2019-07-11] MEDS ORDERED: NACL 0.9% 1,000 ML IV ONE (22:15)
--- NOTE | 2019-07-11 22:15 | NUR ---
ER at bedside examining patient.
--- NOTE | 2019-07-11 23:00 | NUR ---
Pt resting comfortably in bed, no signs of acute distress. Will cont. to monitor.
[2019-07-11] MEDS ORDERED: ACETAMINOPHEN 325 MG TABLET PO ONE (23:45)
[2019-07-12] VITALS (7 sets, daily range): BP systolic 105–147
--- NOTE | 2019-07-12 | NUR ---
Pt resting comfortably in bed, no signs of acute distress. Will cont. to monitor.
[2019-07-12 00:28] LABS: CKMB RELATIVE INDEX 2.2 (0.0-2.9)
--- NOTE | 2019-07-12 01:00 | NUR ---
Note rajani in ED - 07/12/19 at 0514 by [email or web address] Patient will be admitted to care of Dr. Angel. Admitted to Tele unit. Will go to room 135. Belongings list completed. Summary report printed. Report will be given at bedside.
--- NOTE | 2019-07-12 01:05 | NUR ---
Unable to do medication reconcilation. Pt is unable to provide medication list or recall exact medication dosages and names.
--- NOTE | 2019-07-12 01:10 | NUR ---
Patient will be admitted to care of Dr. Angel. Admitted to Tele unit. Will go to room 117 Belongings list completed. Summary report printed. Report will be given at bedside.
--- NOTE | 2019-07-12 01:27 | NUR ---
Transfer to tele via ACLS protocol. Licensed nurse present. IV present no signs or symptoms of infiltration.
--- NOTE | 2019-07-12 01:27 | NUR ---
ADMIT NOTE Received pt from ER to the floor with a diagnosis of SOB AND CKMB POSITIVE. Admission process initiated. patient oriented to pain management, safety and call light-teach back done.
--- NOTE | 2019-07-12 01:30 | NUR ---
pt.admit via er-dept.pt.general status stable.pt.presents throat involvement;pain.pt.presents hx;mrsa;throat.pt.placed in isolation;mrsa.pt.presents voice;character;raspy/hoarse;pt.capable to convey needs verbally:general status stable.respiratory status stable;unlabored.pt.capable to ambulate.pt.presents in access;intact;patent locked.call light/telephone;room placed w/in reach of the pt.i have provided the telephone demonstration.
--- NOTE | 2019-07-12 02:00 | NUR ---
i have provided additional snacks/beverages to the pt.i have provided the toiletries.no additional requests posited @this hour.
--- NOTE | 2019-07-12 03:01 | NUR ---
PAG Addendum: 07/12/19 at 0304 by Yusra Hinson OK/ MD SHANE BORJAING THE PROCESS PUMPER PHYSICIAN DR. MAC FOR ORDERS, SPOKE WITH
--- NOTE | 2019-07-12 03:15 | NUR ---
pt.had stated his pain had returned:location;throat. paged.
[2019-07-12] MEDS: HYDROcodone/ACETAMIN 5-325 MG TAB (NORCO/ VICODIN) PO PRN ×4 (03:30→17:51)
--- NOTE | 2019-07-12 03:30 | NUR ---
returned the page.i apprised of the pt's status;pain. ordered norco;5/325mg po;q-4hrs/p;pain. i have administered the norco;5/325mg to assess the efficacy of the pain medication per pain mgx protocol.
--- NOTE | 2019-07-12 03:52 | NUR ---
PAGED PAGING THE RIP AND GROOVE MACHINE OPERATOR PHYSICIAN, DR. MAC, SPOKE WITH
[2019-07-12] MEDS: LORazepam 2 MG/ML VIAL IVP PRN ×4 (06:07→22:02)
--- NOTE | 2019-07-12 06:46 | NUR ---
pt.assessed.pt.presents quiescent affect;calm.pt.had presents anxious affect. was paged. returned the page. i apprised of the pt's status. ordered;ativan:0.5mg ivp q-4hrs;p.i have administered the ativan.general status status stable.respiratory status stable.pt.capable to ambulate;steady;no assistance.call light/telephone w/in the reach of the pt.
[2019-07-12] MEDS: NACL 0.9% 1,000 ML IV SCH ×2 (06:58→20:29)
--- NOTE | 2019-07-12 07:15 | NUR ---
sbar report received at this time. patient aaox 4. lungs bilaterally clear. abdomen soft and non distended. on room air. has iv access on the rt forearm #20 with normal saline at 75cc/hr infusing on well. ambulatory. goes to the bathroom. no pain nor acute distress noted. bed low position, alarmed and locked. call lights within reach. instructed to call for assistance.
--- NOTE | 2019-07-12 08:00 | NUR ---
vitals signs stable.
[2019-07-12] MEDS: ASPIRIN 81 MG TAB.CHEW PO SCH (08:36)
--- NOTE | 2019-07-12 08:37 | NUR ---
had breafkast no pain nor acute distress noted. verbalized had bowel movement early this morning
[2019-07-12] MEDS ORDERED: PANTOPRAZOLE SODIUM 40 MG TAB PO ONE (09:30)
--- NOTE | 2019-07-12 09:32 | NUR ---
CONSULTATION PAGED/CALLED Reason for Consultation: [] DYSPHAGIA/MS Person Who was Notified: [] DONTE Consulting Physician: [] DR Dari DUTTON Millwright Instructor Specialty: [] NEUROLOGY Ordering Physician: [] DR Dari SAMUELS
--- NOTE | 2019-07-12 09:38 | NUR ---
CONSULTATION PAGED/CALLED Reason for Consultation: [] DYSPHAGIA Person Who was Notified: [] DONTE Consulting Physician: [] DR DARREN PAULINO PHYSICIAN OFFICE REP FOR DR ENG All Purpose Clerk Specialty: [] GI Ordering Physician: [] DR Dari SAMUELS
--- NOTE | 2019-07-12 09:40 | NUR ---
dr irizarry came and evaluate the patient, made orders.
--- NOTE | 2019-07-12 10:45 | NUR ---
resting and no pain nor acute distress noted.
--- NOTE | 2019-07-12 11:00 | NUR ---
went to the bathroom had voided.
--- NOTE | 2019-07-12 11:19 | NUR ---
ativan 0.5 mg iv for anxiety and norco for pain for the throat hurts.
--- NOTE | 2019-07-12 11:33 | NUR ---
Nutrition Update Nigel Scale 14 noted. Pt admitted for SOB and creatine kinase muscle. Diet: regular BMI: 29.4 kg/m2 RD to follow per nutrition care standards.
--- NOTE | 2019-07-12 16:00 | NUR ---
watching tv. and resting
--- NOTE | 2019-07-12 17:51 | NUR ---
ativan 0.5 mg iv given and norco tablet for pain given. while eating dinner
--- NOTE | 2019-07-12 18:00 | NUR ---
eating dinner at this time. made comfortable. assists on adls.
--- NOTE | 2019-07-12 18:21 | NUR ---
went back to sleep. resting.
--- NOTE | 2019-07-12 19:45 | NUR ---
initial notes: pt is awake,alert, oriented x 4. not distress, no sob. anxious,stable. ambulatory with steady gait. pt has 20 gauge iv lock to right forearm-patent and intact with ongoing ivf. no skin breakdown. discuss to pt plan of care, medication, reorient to room and call light, pt verbalized understanding. needs attended call light in reach. low bed position. side rails up. will follow-up. Addendum: 07/13/19 at 0133 by Jacob Hoskins RN maintained on contact isolation for hx of mrsa of nares.
[2019-07-12] MEDS: PANTOPRAZOLE SODIUM 40 MG TAB PO SCH (20:29)
--- NOTE | 2019-07-12 22:00 | NUR ---
pt call for his anxiety medication, discuss to pt medication side effects. pt verbalized understanding. stable. needs attended. call light in reach. side rails up x 2. will monitor.
--- NOTE | 2019-07-13 00:28 | NUR ---
sleeping, comfortable.no pain, no distress, no sob. ivf infusing well. will monitor.
[2019-07-13 00:44] VITALS: BP_SYST 106
[2019-07-13] MEDS: HYDROcodone/ACETAMIN 5-325 MG TAB (NORCO/ VICODIN) PO PRN ×3 (01:22→11:57)
--- NOTE | 2019-07-13 01:33 | NUR ---
pt is awake, alert. complain of pain -6/10.stable. explain medication side effects. pt verbalized understanding. will monitor.
--- NOTE | 2019-07-13 04:00 | NUR ---
sleeping, comfortable. no pain. not distress. no sob. stable. will continue to monitor.
--- NOTE | 2019-07-13 05:45 | NUR ---
pt is awake, alert. eating snacks. stable. maintained isolation. will monitor.
[2019-07-13] MEDS: LORazepam 2 MG/ML VIAL IVP PRN ×2 (06:12→13:41)
--- NOTE | 2019-07-13 07:05 | NUR ---
CLOSING: sleeping on his side. comfortable. stable. ivf infusing well. call light in reach. needs attended the whole shift.maintained on contact isolation. bed side report given to sam rai.
--- NOTE | 2019-07-13 07:10 | NUR ---
received report at the bedside. patient aaox 4. lungs bilaterally clear. abdomen soft and non distended. has iv access on the rt forearm #20 w/ normal saline at 75cc/hr infusing on well. bed low position, alarmed and locked. no complained so far. afebrile. vitals signs stable. call lights within reach. will continue to monitor patients status.
[2019-07-13] MEDS: PANTOPRAZOLE SODIUM 40 MG TAB PO SCH (08:06)
[2019-07-13] MEDS: ASPIRIN 81 MG TAB.CHEW PO SCH (08:06)
--- NOTE | 2019-07-13 08:09 | NUR ---
COMPLAINED OF THROAT PAIN NORCO TAB GIVEN
--- NOTE | 2019-07-13 08:11 | NUR ---
DUE MED GIVEN.
[2019-07-13 08:27] LABS: BASOPHILS % (AUTO) 0.2 % (0.0-2.0); EOSINOPHILS % (AUTO) 0.1 % (0.0-4.0); HEMATOCRIT 40.4 % (36-54); HEMOGLOBIN 14.1 g/dL (14.0-18.0); LYMPHOCYTES # (AUTO) 1.6 K/uL (1.0-5.5); LYMPHOCYTES % (AUTO) 19.4 % (20.5-51.5); MEAN CORPUSCULAR HEMOGLOBIN 33 pg (27-31); MEAN CORPUSCULAR HGB CONC 35 % (32-36); MEAN CORPUSCULAR VOLUME 95 fL (79.0-98.0); MONOCYTES # (AUTO) 0.4 K/uL (0.0-1.0); MONOCYTES % (AUTO) 5.1 % (1.7-9.3); NEUTROPHILS # (AUTO) 6.2 K/uL (1.8-7.7); NEUTROPHILS % (AUTO) 75.2 % (40.0-70.0); PLATELET COUNT (AUTO) 209 K/uL (130-430); RED BLOOD CELL COUNT(AUTO) 4.24 MIL/uL (4.2-6.2); RED CELL DISTRIBUTION WIDTH 13.3 % (9.0-15.0); WHITE BLOOD COUNT (AUTO) 8.3 K/uL (4.8-10.8)
[2019-07-13 08:36] LABS: ALBUMIN 3.1 g/dL (3.4-4.8); CALCIUM 8.1 mg/dL (8.4-11.0); POTASSIUM 3.6 mmol/L (3.5-5.1); TOTAL BILIRUBIN 0.3 mg/dL (0.0-1.0)
[2019-07-13 08:41] VITALS: BP_SYST 115
--- NOTE | 2019-07-13 11:35 | NUR ---
yad[employer] litigation legal secretary called the health social worker palliative care. pillowcase maker sent faxed to David Torres.
[2019-07-13] MEDS: NACL 0.9% 1,000 ML IV SCH (11:58)
--- NOTE | 2019-07-13 13:18 | NUR ---
BLS TRANSPORT TO [facility] WITH MEDIC-1 TO [address] [employer] AT 6PM I SPOKE TO MARY.
--- NOTE | 2019-07-13 13:44 | NUR ---
dr grey came but pt can go to his clinic, if ok with the patient.
--- NOTE | 2019-07-13 15:30 | NUR ---
sbar report given to Marco TRAVIS at [facility]. patient will be going to room 101-B
[2019-07-13 15:59] VITALS: BP_SYST 124
--- NOTE | 2019-07-13 16:00 | NUR ---
resting no complained made so far.
[2019-07-13 16:38] VITALS: BP_SYST 124
--- NOTE | 2019-07-13 17:30 | NUR ---
had dinner good. no complained so far.
--- NOTE | 2019-07-13 18:10 | NUR ---
[facility] ambulance came and continuous pickling line pickler the patient in stable condition. scdh i d band removed. all belongings given to the patient. prescription by dr irizarry given to the patient. explained each medication indication, dosages and side effects and frequency. discharged instruction given to [facility] ambulance.
--- NOTE | 2019-07-13 19:00 | NUR ---
called Zoe regarding the car keys, was not given to the nurse. she needs to go to [facility] room 101-B to brick picker the car keys and take the car from [facility] to bring home
== END 2019-07-13 18:10 | DRG 392 ==
LOC: SED 19:08 → STU 07-12 01:21
PROVIDERS: ADMIT Internal Medicine Hospice and Palliative Medicine; ATTEND Internal Medicine Hospice and Palliative Medicine
DX: K21.9 Gastro-esophageal reflux disease without esophagitis (principal); R13.10 Dysphagia, unspecified; F41.9 Anxiety disorder, unspecified; G35 Multiple sclerosis; I10 Essential (primary) hypertension; Z86.14 Personal history of Methicillin resistant Staphylococcus aureus infection; Z90.49 Acquired absence of other specified parts of digestive tract; Z79.899 Other long term (current) drug therapy
CPT/HCPCS: 36415; 71046-TC; 80053; 82550-TC; 82553-TC; 83874; 83880; 84484; 85025; 85379; 85610-TC; 87081; 93005; 96360; 99285; G0378; J2060; J7030

== ENCOUNTER 2019-09-03 17:12 | Emergency (ER) | payer OTHER, BC ==
[~2019-09-03] VITALS: Ht 177.8 cm; Wt 95.3 kg
[2019-09-03 17:46] VITALS: BP_SYST 150
[2019-09-03] MEDS ORDERED: DEXAMETHASONE SOD PHOSPHATE 10 MG/ML VIAL IM ONE (18:15)
[2019-09-03] MEDS ORDERED: KETOROLAC TROMETHAMINE 60 MG/2 ML VIAL IM ONE (18:15)
[2019-09-03 18:50] VITALS: BP_SYST 138
== END 2019-09-03 18:50 | disposition home or self-care (01) ==
LOC: SED 17:12
DX: R07.0 Pain in throat (principal); I10 Essential (primary) hypertension; K21.9 Gastro-esophageal reflux disease without esophagitis
CPT/HCPCS: 96372; 99283; J1100; J1885

== ENCOUNTER 2019-09-07 12:29 | Emergency (ER) | payer OTHER, BC ==
[~2019-09-07] VITALS: Ht 177.8 cm; Wt 95.3 kg
[2019-09-07 12:30] VITALS: BP_SYST 142
== END 2019-09-07 12:44 | disposition home or self-care (01) ==
LOC: SED 12:29
DX: R07.0 Pain in throat (principal); I10 Essential (primary) hypertension; K21.9 Gastro-esophageal reflux disease without esophagitis; F41.9 Anxiety disorder, unspecified
CPT/HCPCS: 99281

== ENCOUNTER 2019-11-05 05:39 | Emergency (ER) | payer OTHER, BC ==
[~2019-11-05] VITALS: Ht 177.8 cm; Wt 95.3 kg
[2019-11-05 05:43] VITALS: BP_SYST 132
--- NOTE | 2019-11-05 05:43 | NUR ---
Patient triaged and placed in waiting room. VSS and patient appears in no acute distress at this time. Accompanied by SELF, awaiting available bed, and MD notified of need for MSE.
--- NOTE | 2019-11-05 06:20 | NUR ---
CALL PT NAME IN THE WR,NO ANSWER
--- NOTE | 2019-11-05 06:25 | NUR ---
CALL PT NAME IN THE WR,NO ANSWER
--- NOTE | 2019-11-05 06:30 | NUR ---
CALL PT NAME IN THE WR,NO ANSWER.
== END 2019-11-05 06:30 | disposition left against medical advice (07) ==
LOC: SED 05:39
DX: R07.0 Pain in throat (principal); Z53.21 Procedure and treatment not carried out due to patient leaving prior to being seen by health care provider

== ENCOUNTER 2020-02-17 06:21 | Emergency (ER) | payer BC, OTHER ==
[~2020-02-17] VITALS: Ht 177.8 cm; Wt 72.6 kg
[2020-02-17 06:40] VITALS: BP_SYST 118
--- NOTE | 2020-02-17 06:40 | NUR ---
Pt from home, placed to ER bed 07. Pt c/o sore throat x 3 weeks.
--- NOTE | 2020-02-17 06:46 | NUR ---
Dr. Varghese at bedside.
[2020-02-17] MEDS ORDERED: cefTRIAXone 1 GM in LIDOCAINE 1%, 20 ML MDV 2.1 ML IM ONE (07:00)
[2020-02-17] MEDS ORDERED: LIDOCAINE 1% 10 MG/ML, 20 ML MDV INJ ONE (07:00)
[2020-02-17 07:18] VITALS: BP_SYST 122
--- NOTE | 2020-02-17 07:18 | NUR ---
Patient given written and verbal discharge instructions and verbalizes understanding. ER MD discussed with patient the results and treatment provided. Patient in stable condition. ID arm band removed. Rx of Tylenol and Amoxicillin given. Patient educated on pain management and to follow up with PMD. Pain Scale 0/10. Opportunity for questions provided and answered. Medication side effect fact sheet provided.
== END 2020-02-17 07:18 | disposition home or self-care (01) ==
LOC: SED 06:21
DX: J02.9 Acute pharyngitis, unspecified (principal); K21.9 Gastro-esophageal reflux disease without esophagitis; I10 Essential (primary) hypertension; F41.9 Anxiety disorder, unspecified; N28.9 Disorder of kidney and ureter, unspecified; Z86.73 Personal history of transient ischemic attack (TIA), and cerebral infarction without residual deficits; Z86.79 Personal history of other diseases of the circulatory system
CPT/HCPCS: 96372; 99283; J0696; J2001

== ENCOUNTER 2020-02-21 13:01 | Emergency (ER) | payer OTHER ==
[~2020-02-21] VITALS: Ht 177.8 cm; Wt 86.2 kg
[2020-02-21 13:01] VITALS: BP_SYST 105
[2020-02-21] MEDS ORDERED: KETOROLAC TROMETHAMINE 30 MG VIAL IM ONE (14:00)
[2020-02-21 14:14] VITALS: BP_SYST 105
== END 2020-02-21 14:14 | disposition home or self-care (01) ==
LOC: SED 13:01
DX: J37.0 Chronic laryngitis (principal); K21.9 Gastro-esophageal reflux disease without esophagitis; I10 Essential (primary) hypertension; Z76.5 Malingerer [conscious simulation]
CPT/HCPCS: 36415; 86403; 87081; 96372; 99283; J1885

== ENCOUNTER 2020-04-15 13:07 | Emergency (ER) | payer OTHER ==
[~2020-04-15] VITALS: Ht 177.8 cm; Wt 87.1 kg
[2020-04-15 13:07] VITALS: BP_SYST 140
--- NOTE | 2020-04-15 13:07 | NUR ---
BROUGHT BACK TO BED #6 AND TRIAGED. REPORT GIVEN TO MARGIE
--- NOTE | 2020-04-15 13:10 | NUR ---
Pt walked in to ER requesting medication for inflammation. Reports chronic laryngitis and is scheduled for a scope 04/28. Denies SOB, cough or fever at this time. V/S stable. Currently resting in bed, will continue to monitor.
--- NOTE | 2020-04-15 13:45 | NUR ---
ER Dr. Snow at bedside examining patient.
--- NOTE | 2020-04-15 14:20 | NUR ---
Patient given written and verbal discharge instructions and verbalizes understanding. ER MD discussed with patient the results and treatment provided. Patient in stable condition. ID arm band removed. Rx of Medrol given. Patient educated on pain management and to follow up with PMD. Pain Scale 0. Opportunity for questions provided and answered. Medication side effect fact sheet provided.
[2020-04-15 14:24] VITALS: BP_SYST 140
== END 2020-04-15 14:20 | disposition home or self-care (01) ==
LOC: SED 13:07
DX: J37.0 Chronic laryngitis (principal); I10 Essential (primary) hypertension; K21.9 Gastro-esophageal reflux disease without esophagitis; F41.9 Anxiety disorder, unspecified
CPT/HCPCS: 99283

== ENCOUNTER 2020-09-20 08:14 | Emergency (ER) | payer OTHER ==
[~2020-09-20] VITALS: Ht 180.3 cm; Wt 86.2 kg
[2020-09-20 08:15] VITALS: BP_SYST 119
--- NOTE | 2020-09-20 08:15 | NUR ---
BROUGHT BACK TO HALLWAY BED AND TRIAGED. REPORT GIVEN TO MARGIE
--- NOTE | 2020-09-20 08:17 | NUR ---
PT WELL KNOWN TO ER. PT HERE FOR CHRONIC SORE THROAT WITH 9/10 PAIN.
--- NOTE | 2020-09-20 08:30 | NUR ---
Patient presented to ER C/O sore throat Patient ambulatory to ER, afebrile, skin pink and warm, pulse-oximeter 97%, pain 07/22, denies N/V/D Patient states he has a chronic sore throat and coughed up blood today.
--- NOTE | 2020-09-20 08:53 | NUR ---
DR DAVID AT BEDSIDE FOR EVALUATION
--- NOTE | 2020-09-20 08:55 | NUR ---
ER Dr. Singletary at bedside examining patient.
[2020-09-20] MEDS ORDERED: KETOROLAC TROMETHAMINE 60 MG/2 ML VIAL IM ONE (09:15)
--- NOTE | 2020-09-20 09:56 | NUR ---
Patient given written and verbal discharge instructions and verbalizes understanding. ER MD discussed with patient the results and treatment provided. Patient in stable condition. ID arm band removed. Rx of NONE given. Patient educated on pain management and to follow up with PMD. Pain Scale 0/10. Opportunity for questions provided and answered. Medication side effect fact sheet provided. PT TOLD TO FOLLOW UP WITH PMD IN 1-2 DAYS
== END 2020-09-20 09:55 | disposition home or self-care (01) ==
LOC: SED 08:14
DX: K21.9 Gastro-esophageal reflux disease without esophagitis (principal); F41.9 Anxiety disorder, unspecified; I10 Essential (primary) hypertension; Z86.14 Personal history of Methicillin resistant Staphylococcus aureus infection
CPT/HCPCS: 96372; 99283; J1885

== ENCOUNTER 2020-12-20 07:55 | Emergency (ER) | payer OTHER, SELFPAY ==
[~2020-12-20] VITALS: Ht 167.6 cm; Wt 77.1 kg
[2020-12-20 08:06] VITALS: BP_SYST 107
[2020-12-20] MEDS ORDERED: MORPHINE 4 MG/ML INJ. SYRINGE IM ONE (08:15)
[2020-12-20] MEDS ORDERED: ONDANSETRON 4 MG ODT TAB PO ONE (08:15)
[2020-12-20] MEDS ORDERED: MORPHINE 4 MG/ML INJ. SYRINGE IVP ONE (08:15)
[2020-12-20 08:45] LABS: BASOPHILS % (AUTO) 0.3 % (0.0-2.0); HEMATOCRIT 42.9 % (36-54); HEMOGLOBIN 14.7 g/dL (14.0-18.0); LYMPHOCYTES # (AUTO) 0.9 K/uL (1.0-5.5); LYMPHOCYTES % (AUTO) 10.5 % (20.5-51.5); MEAN CORPUSCULAR HEMOGLOBIN 32 pg (27-31); MEAN CORPUSCULAR HGB CONC 34 % (32-36); MEAN CORPUSCULAR VOLUME 93 fL (79.0-98.0); MONOCYTES # (AUTO) 0.5 K/uL (0.0-1.0); MONOCYTES % (AUTO) 5.9 % (1.7-9.3); NEUTROPHILS # (AUTO) 7.3 K/uL (1.8-7.7); NEUTROPHILS % (AUTO) 83.3 % (40.0-70.0); PLATELET COUNT (AUTO) 440 K/uL (130-430); RED BLOOD CELL COUNT(AUTO) 4.62 MIL/uL (4.2-6.2); RED CELL DISTRIBUTION WIDTH 13.7 % (9.0-15.0); WHITE BLOOD COUNT (AUTO) 8.8 K/uL (4.8-10.8)
[2020-12-20 08:52] LABS: CALCIUM 9.6 mg/dL (8.4-11.0); CREATININE 1.16 mg/dL (0.55-1.30); POTASSIUM 3.5 mmol/L (3.5-5.1)
[2020-12-20 08:58] LABS: ALBUMIN 4.1 g/dL (3.4-4.8); TOTAL BILIRUBIN 0.5 mg/dL (0.0-1.0)
[2020-12-20 08:59] LABS: PROTHROMBIN TIME 10.4 SECS (9.5-12.5)
[2020-12-20 09:37] VITALS: BP_SYST 111
[2020-12-20] MEDS ORDERED: IBUP-1971 PO (09:43)
[2020-12-20] MEDS ORDERED: CEPH-568 PO (09:43)
[2020-12-20] MEDS ORDERED: PSEU30TA36 PO (09:43)
[2020-12-20 09:46] LABS: C-REACTIVE PROTEIN QUANT 2.1 mg/dL (0-0.5)
[2020-12-20 10:36] LABS: ERYTHROCYTE SEDIMENTATION RATE 15 MM/HR (0-15)
== END 2020-12-20 09:37 | disposition home or self-care (01) ==
LOC: SED 07:55
DX: R51.9 Headache, unspecified (principal); I10 Essential (primary) hypertension; K21.9 Gastro-esophageal reflux disease without esophagitis; F41.9 Anxiety disorder, unspecified; Z86.14 Personal history of Methicillin resistant Staphylococcus aureus infection
CPT/HCPCS: 36415; 70450; 76376; 80053; 85025; 85610; 85651; 85730; 86140; 96372; 99284; J2270; Q0162

== ENCOUNTER 2021-01-25 07:20 | Emergency (ER) | payer OTHER, SELFPAY ==
[~2021-01-25] VITALS: Ht 177.8 cm; Wt 77.1 kg
[~2021-01-25 07:20] MED LIST changes: +CEPH-568 PO; +IBUP-1971 PO; +PSEU30TA36 PO
[2021-01-25 07:34] VITALS: BP_SYST 116
--- NOTE | 2021-01-25 07:35 | NUR ---
Patient to ER bed 7 to gown for evaluation. Side rails up.
--- NOTE | 2021-01-25 07:45 | NUR ---
PT CAME IN FROM HOME STATING THAT HE HAS A SORE THROAT AND POST NASAL DRIP SINCE HIS HIATAL HERNIA REPAIR SURGURY 1 MONTH AGO. HE HAS ALSO HAD GERD WHICH HE TAKES PROTONIX EVERYOTHER DAY, N/V SEVERAL TIMES PER DAY. HE STATES THAT HIS SURGEON IS AWARE. PT IS AAOX4, V/S STABLE.
--- NOTE | 2021-01-25 08:00 | NUR ---
ER DR. UP AT THE BEDSIDE EXAMINING PT
[2021-01-25] MEDS ORDERED: ALPR0.5T PO (08:13)
[2021-01-25] MEDS ORDERED: TRAM50TA2 PO (08:13)
--- NOTE | 2021-01-25 08:20 | NUR ---
Patient given written and verbal discharge instructions and verbalizes understanding. ER MD discussed with patient the results and treatment provided. Patient in stable condition. ID arm band removed. Rx of TRAMADOL AND XANAX given. Patient educated on pain management and to follow up with PMD. Pain Scale 3/10. Opportunity for questions provided and answered. Medication side effect fact sheet provided.
[2021-01-25 08:22] VITALS: BP_SYST 137
== END 2021-01-25 08:22 | disposition home or self-care (01) ==
LOC: SED 07:20
DX: K21.9 Gastro-esophageal reflux disease without esophagitis (principal); I10 Essential (primary) hypertension; F41.9 Anxiety disorder, unspecified; Z79.899 Other long term (current) drug therapy
CPT/HCPCS: 99283

== ENCOUNTER 2021-06-02 10:55 | Emergency (ER) | payer OTHER ==
[~2021-06-02] VITALS: Ht 177.8 cm; Wt 81.6 kg
[~2021-06-02 10:55] MED LIST changes: +ALPR0.5T PO; +TRAM50TA2 PO
[2021-06-02 11:20] VITALS: BP_SYST 145
[2021-06-02] MEDS ORDERED: PANTOPRAZOLE SODIUM 40 MG TAB PO ONE (11:45)
[2021-06-02] MEDS ORDERED: MAG-AL HYDROX/SIMETH 30 ML UDC PO ONE (11:45)
[2021-06-02] MEDS ORDERED: KETOROLAC TROMETHAMINE 60 MG/2 ML VIAL IM ONE (11:45)
[2021-06-02] MEDS ORDERED: DIPHENHYDRAMINE INJ 50 MG/ML VIAL IM ONE (12:45)
[2021-06-02] MEDS ORDERED: traMADol HCL HCL 50 MG TABLET (ULTRAM) PO ONE (12:45)
[2021-06-02] MEDS ORDERED: HYDR-3917 PO (14:47)
[2021-06-02 14:59] VITALS: BP_SYST 131
== END 2021-06-02 14:59 | disposition home or self-care (01) ==
LOC: SED 10:55
DX: G89.29 Other chronic pain (principal); R07.0 Pain in throat; I10 Essential (primary) hypertension; K21.9 Gastro-esophageal reflux disease without esophagitis; Z79.899 Other long term (current) drug therapy; F12.90 Cannabis use, unspecified, uncomplicated
CPT/HCPCS: 36415; 86403; 87081; 96372; 99284; J1200; J1885

== ENCOUNTER 2021-06-18 08:05 | Emergency (ER) | payer OTHER ==
[~2021-06-18] VITALS: Ht 177.8 cm; Wt 81.6 kg
[~2021-06-18 08:05] MED LIST changes: +HYDR-3917 PO
[2021-06-18] MEDS: LORazepam 2 MG/ML VIAL IM ONE (08:51)
[2021-06-18] MEDS: LIDOCAINE VISCOUS 2%, 15 ML UDC MM ONE ×2 (08:54)
[2021-06-18 09:11] VITALS: BP_SYST 143
--- NOTE | 2021-06-18 09:14 | NUR ---
Patient triaged and placed in bed 4. VSS and patient appears in no acute distress at this time. MD notified of need for MSE.
--- NOTE | 2021-06-18 09:14 | NUR ---
ER at bedside examining patient.
--- NOTE | 2021-06-18 09:14 | NUR ---
Pt came into ER with complanint of sore throat X3days. Pt restin maurizio bates pain 08/21. Attached to monitor VSS.
--- NOTE | 2021-06-18 09:16 | NUR ---
Urine collected and sent to lab.
[2021-06-18 09:30] LABS: BARBITURATE, URINE NEGATIVE (NEG <=200); BENZODIAZEPINE, URINE NEGATIVE (NEG <=150); CANNABINOID, URINE NEGATIVE (NEG <=50); COCAINE, URINE NEGATIVE (NEG <=150); METHAMPHETAMINES SCREEN,URINE NEGATIVE (NEG <=500); OPIATE, URINE NEGATIVE (NEG <=100); PHENCYCLIDINE SCREEN,URINE NEGATIVE (NEG <=25); UR TRICYCLIC ANTIDEPRESSANTS NEGATIVE (NEG <=300); URINE AMPHETAMINE NEGATIVE (NEG <=500); URINE METHADONE NEGATIVE (NEG <=200); URINE OXYCODONE SCREEN NEGATIVE (NEG <=100); URINE PROPOXYPHENE SCREEN NEGATIVE (NEG <=300)
[2021-06-18] MEDS: KETOROLAC TROMETHAMINE 30 MG VIAL IM ONE (11:02)
[2021-06-18 11:07] VITALS: BP_SYST 143
== END 2021-06-18 11:07 | disposition home or self-care (01) ==
LOC: SED 08:05
DX: J02.9 Acute pharyngitis, unspecified (principal); I10 Essential (primary) hypertension; K21.9 Gastro-esophageal reflux disease without esophagitis; Z79.899 Other long term (current) drug therapy
CPT/HCPCS: 80307; 96372; 99284; J1885; J2001; J2060

== ENCOUNTER 2021-07-20 19:11 | Emergency (ER) | payer OTHER, SELFPAY ==
[~2021-07-20] VITALS: Ht 152.4 cm; Wt 81.6 kg
[2021-07-20 19:39] VITALS: BP_SYST 129
--- NOTE | 2021-07-20 20:11 | NUR ---
Patient triaged and placed in waiting room. VSS and patient appears in no acute distress at this time. Accompanied by self , awaiting available bed, and MD notified of need for MSE.
--- NOTE | 2021-07-20 20:12 | NUR ---
Note rajani in EDM - 07/20/21 at 2016 by [email or web address] Pt brought by self, A&O4, pt presents to ER with cough /congestion and weakness, pt states she had the pfizer vaccine last week and symptoms started, pt afebrile, skin pink and warm, cap refill <3.
--- NOTE | 2021-07-20 20:14 | NUR ---
Pt brought by self, A&Ox4, pt presents to ER with sore throat and sinus pain, pt anxious, repsirations even and unlabored, cap refill <3, VSS.
--- NOTE | 2021-07-20 20:30 | NUR ---
Dr Breaux evaluating patient at bedside
--- NOTE | 2021-07-20 21:19 | NUR ---
Pt eloped ER before given discharge intructions or discharge paperwork, unable to do PCR covid testing.
== END 2021-07-20 21:21 | disposition left against medical advice (07) ==
LOC: SED 19:11
DX: K21.00 Gastro-esophageal reflux disease with esophagitis, without bleeding (principal); R09.82 Postnasal drip; I10 Essential (primary) hypertension; K21.9 Gastro-esophageal reflux disease without esophagitis; Z79.899 Other long term (current) drug therapy
CPT/HCPCS: 99281

== ENCOUNTER 2021-08-06 08:57 | Emergency (ER) | payer OTHER, SELFPAY ==
[~2021-08-06] VITALS: Ht 177.8 cm; Wt 81.6 kg
[2021-08-06 09:06] VITALS: BP_SYST 141
--- NOTE | 2021-08-06 09:18 | NUR ---
AMBULATED TO BED 5
--- NOTE | 2021-08-06 09:22 | NUR ---
ER at bedside examining patient.
--- NOTE | 2021-08-06 09:25 | NUR ---
Pt. came in byself with 2 complaints, first complaint is swelling to right hand, hand is mildly swollen and discolored, pt. states no pain when hand at rest but when attempts to make a fist 6/10 pain; pt. also states has nausea, has a hx. of acid reflux
[2021-08-06] MEDS ORDERED: ONDANSETRON 4 MG ODT TAB PO ONE (09:30)
--- NOTE | 2021-08-06 09:35 | NUR ---
Patient ambulated to radiology, accompanied by staff.
--- NOTE | 2021-08-06 10:01 | NUR ---
Pt. returned from radiology, states nausea better
[2021-08-06 10:27] LABS: BASOPHILS % (AUTO) 0.4 % (0.0-2.0); EOSINOPHILS % (AUTO) 0.4 % (0.0-4.0); HEMATOCRIT 43.3 % (36-54); HEMOGLOBIN 14.7 g/dL (14.0-18.0); LYMPHOCYTES # (AUTO) 1.1 K/uL (1.0-5.5); LYMPHOCYTES % (AUTO) 14.8 % (20.5-51.5); MEAN CORPUSCULAR HEMOGLOBIN 32 pg (27-31); MEAN CORPUSCULAR HGB CONC 34 % (32-36); MEAN CORPUSCULAR VOLUME 93 fL (79.0-98.0); MONOCYTES # (AUTO) 0.5 K/uL (0.0-1.0); NEUTROPHILS # (AUTO) 5.6 K/uL (1.8-7.7); NEUTROPHILS % (AUTO) 77.4 % (40.0-70.0); PLATELET COUNT (AUTO) 266 K/uL (130-430); RED BLOOD CELL COUNT(AUTO) 4.65 MIL/uL (4.2-6.2); RED CELL DISTRIBUTION WIDTH 14.5 % (9.0-15.0); WHITE BLOOD COUNT (AUTO) 7.3 K/uL (4.8-10.8)
[2021-08-06 10:39] LABS: ANION GAP 9 (5-15); CALCIUM 8.9 mg/dL (8.4-11.0); CHLORIDE 103 mmol/L (98-107); CREATININE 1.04 mg/dL (0.55-1.30); GLUCOSE 124 mg/dL (70-99); POTASSIUM 4.1 mmol/L (3.5-5.1); SODIUM SERUM 139 mmol/L (136-145); UREA NITROGEN, BLOOD 22 mg/dL (8-21)
[2021-08-06 10:41] LABS: GFR AFRICAN AMERICAN 95 mL/min (>90)
[2021-08-06 10:44] LABS: ALANINE AMINOTRANSFERASE 33 U/L (12-78); ALBUMIN 3.9 g/dL (3.4-4.8); ASPARTATE AMINOTRANSFERASE 26 U/L (10-37); TOTAL BILIRUBIN 0.3 mg/dL (0.0-1.0)
[2021-08-06 10:47] LABS: C-REACTIVE PROTEIN QUANT < 0.2 mg/dL (0-0.5)
[2021-08-06] MEDS ORDERED: RIVA20TA PO (10:54)
[2021-08-06] MEDS ORDERED: RIVA15TA PO (10:54)
[2021-08-06 11:27] VITALS: BP_SYST 141
--- NOTE | 2021-08-06 11:27 | NUR ---
Pt. spoke with Dr. atkins 2X regarding results of U/S, Dr. atkins reccomended blood thinner and sent prescription in, pt. stated did not want to start any blood thinning medications d/t scheduled surgery sunday, Dr. Atkins answered all pts. questions and pt. decided to leave AMA stating he does not want to risk having his surgery cancelled.
== END 2021-08-06 11:27 | disposition left against medical advice (07) ==
LOC: SED 08:57
DX: I80.8 Phlebitis and thrombophlebitis of other sites (principal); I10 Essential (primary) hypertension; K21.9 Gastro-esophageal reflux disease without esophagitis; Z79.899 Other long term (current) drug therapy
CPT/HCPCS: 36415; 73130; 80053; 85025; 86140; 93971; 99285; Q0162

== ENCOUNTER 2021-08-10 10:41 | Emergency (ER) | payer OTHER, SELFPAY ==
[~2021-08-10] VITALS: Ht 177.8 cm; Wt 81.6 kg
[2021-08-10 10:41] VITALS: BP_SYST 118
[~2021-08-10 10:41] MED LIST changes: +RIVA15TA PO; +RIVA20TA PO
[2021-08-10] MEDS ORDERED: RIVAROXABAN 10 MG TABLET PO ONE (11:00)
[2021-08-10 11:21] VITALS: BP_SYST 100
== END 2021-08-10 11:22 | disposition home or self-care (01) ==
LOC: SED 10:41
DX: I80.8 Phlebitis and thrombophlebitis of other sites (principal)
CPT/HCPCS: 99283

== ENCOUNTER 2021-08-17 13:47 | Emergency (ER) | payer BC, SELFPAY ==
[~2021-08-17] VITALS: Ht 177.8 cm; Wt 81.6 kg
[2021-08-17 13:47] VITALS: BP_SYST 133
--- NOTE | 2021-08-17 13:47 | NUR ---
BROUGHT TO OUTSIDE TRIAGE TENT AND TRIAGED. WILL ASSUME CARE. PT IS WELL KNOWN TO STAFF IN ER.
--- NOTE | 2021-08-17 13:54 | NUR ---
PT IS WELL KNOWN TO ER STAFF FROM MULTIPLE VISITS. PT STATES HE CHANGED HIS DRS AND IS UNABLE TO GET ANYTHING TO CALM HIM DOWN. STATES HE HAS BAD ANXIETY. HE WILL SEE A NEW DR ON 08/19 BUT NEEDS SOMETHING TO CALM HIM DOWN UNTIL THEN.
--- NOTE | 2021-08-17 14:05 | NUR ---
DR CAMACHO OUT TO TENT FOR EVALUATION
[2021-08-17] MEDS ORDERED: ALPR0.5T PO (14:10)
--- NOTE | 2021-08-17 15:06 | NUR ---
Patient given written and verbal discharge instructions and verbalizes understanding. ER MD discussed with patient the results and treatment provided. Patient in stable condition. ID arm band removed. Rx of XANAX given. Patient educated on pain management and to follow up with PMD. Pain Scale 0/10. Opportunity for questions provided and answered. Medication side effect fact sheet provided.
== END 2021-08-17 15:06 | disposition home or self-care (01) ==
LOC: SED 13:47
DX: F41.9 Anxiety disorder, unspecified (principal); I10 Essential (primary) hypertension; K21.9 Gastro-esophageal reflux disease without esophagitis; Z79.899 Other long term (current) drug therapy
CPT/HCPCS: 99283

== ENCOUNTER 2021-08-27 10:16 | Emergency (ER) | payer BC, SELFPAY ==
[~2021-08-27] VITALS: Ht 177.8 cm; Wt 81.6 kg
[2021-08-27 10:24] VITALS: BP_SYST 141
[2021-08-27] MEDS ORDERED: TRAM50TA2 PO (10:45)
[2021-08-27] MEDS ORDERED: KETOROLAC TROMETHAMINE 60 MG/2 ML VIAL IM ONE (10:45)
[2021-08-27] MEDS ORDERED: methylPREDNISolone SOD SUCC/PF 62.5 MG/ML VIAL IM ONE (10:45)
[2021-08-27] MEDS ORDERED: PRED20TA PO (10:49)
[2021-08-27 11:00] VITALS: BP_SYST 141
== END 2021-08-27 11:00 | disposition home or self-care (01) ==
LOC: SED 10:16
DX: J32.9 Chronic sinusitis, unspecified (principal); J02.9 Acute pharyngitis, unspecified; I10 Essential (primary) hypertension; K21.9 Gastro-esophageal reflux disease without esophagitis; Z79.899 Other long term (current) drug therapy
CPT/HCPCS: 96372; 99284; J1885; J2930

== ENCOUNTER 2021-12-31 01:03 | Emergency (ER) | payer BC, SELFPAY ==
[~2021-12-31] VITALS: Ht 177.8 cm; Wt 88.5 kg
[~2021-12-31 01:03] MED LIST changes: +PRED20TA PO
--- NOTE | 2021-12-31 01:35 | NUR ---
PLACEPlaced in room 6 . Placed on monitor technician, blood pressure machine and pulse oximeter. To gown for exam. Side rails up.
[2021-12-31 01:50] VITALS: BP_SYST 165
[2021-12-31] MEDS ORDERED: MORPHINE 4 MG INJ. 4 MG/ML VIAL IVP ONE (02:15)
[2021-12-31] MEDS ORDERED: FAMOTIDINE PF 20 MG/2 ML VIAL IVP ONE (02:15)
--- NOTE | 2021-12-31 02:20 | NUR ---
IV INSERTED ON THE LT AC G-20, INTACT WITH GOOD BACK FLOW.
[2021-12-31 02:28] LABS: BASOPHILS % (AUTO) 0.6 % (0.0-2.0); EOSINOPHILS % (AUTO) 0.8 % (0.0-4.0); HEMATOCRIT 44.2 % (36-54); HEMOGLOBIN 14.9 g/dL (14.0-18.0); LYMPHOCYTES # (AUTO) 1.7 K/uL (1.0-5.5); LYMPHOCYTES % (AUTO) 27.9 % (20.5-51.5); MEAN CORPUSCULAR HEMOGLOBIN 30 pg (27-31); MEAN CORPUSCULAR HGB CONC 34 % (32-36); MEAN CORPUSCULAR VOLUME 89 fL (79.0-98.0); MONOCYTES # (AUTO) 0.5 K/uL (0.0-1.0); NEUTROPHILS # (AUTO) 3.8 K/uL (1.8-7.7); NEUTROPHILS % (AUTO) 62.7 % (40.0-70.0); PLATELET COUNT (AUTO) 312 K/uL (130-430); RED BLOOD CELL COUNT(AUTO) 4.98 MIL/uL (4.2-6.2); RED CELL DISTRIBUTION WIDTH 14.3 % (9.0-15.0)
[2021-12-31 02:49] LABS: CALCIUM 8.7 mg/dL (8.4-11.0); CREATININE 0.97 mg/dL (0.55-1.30); POTASSIUM 3.7 mmol/L (3.5-5.1)
[2021-12-31 02:57] LABS: ALBUMIN 4.1 g/dL (3.4-4.8); TOTAL BILIRUBIN 0.1 mg/dL (0.0-1.0)
[2021-12-31] MEDS ORDERED: MORPHINE 4 MG INJ. 4 MG/ML VIAL ONE (04:26)
[2021-12-31] MEDS ORDERED: FAMOTIDINE PF 20 MG/2 ML VIAL ONE (04:26)
[2021-12-31] MEDS ORDERED: ESOM40CA53 PO (05:00)
[2021-12-31 06:14] VITALS: BP_SYST 99
--- NOTE | 2021-12-31 06:16 | NUR ---
PT A&O X4, VERBAL, AMBULATORY, NO SOB/ DISTRESS. NO C/O PAIN AT THIS TIME, D/C INSTRUCTION DISCUSSED, RX, EDUCATION, F/U INSTRUCTION DISCUSSED, ALL RESULT GIVEN, NO FURTHER NEEDS.
== END 2021-12-31 06:15 | disposition home or self-care (01) ==
LOC: SED 01:03
DX: K21.9 Gastro-esophageal reflux disease without esophagitis (principal); R07.89 Other chest pain; I10 Essential (primary) hypertension; Z79.899 Other long term (current) drug therapy
CPT/HCPCS: 36415; 71045; 80053; 83880; 84484; 85025; 93005; 96374; 96375; 99285; J2270; J3490

== ENCOUNTER 2022-01-02 10:53 | Emergency (ER) | payer BC ==
[~2022-01-02 10:53] MED LIST changes: +ESOM40CA53 PO
[2022-01-02 11:27] VITALS: BP_SYST 143
[2022-01-02 11:38] VITALS: BP_SYST 143
[2022-01-02] MEDS ORDERED: LORazepam 1 MG TABLET PO ONE (12:00)
== END 2022-01-02 12:40 | disposition home or self-care (01) ==
LOC: SED 10:53
DX: J02.9 Acute pharyngitis, unspecified (principal); I10 Essential (primary) hypertension; K21.9 Gastro-esophageal reflux disease without esophagitis; Z79.899 Other long term (current) drug therapy
CPT/HCPCS: 99283

== ENCOUNTER 2022-01-02 22:43 | Emergency (ER) | payer BC ==
[~2022-01-02] VITALS: Ht 177.8 cm; Wt 88.5 kg
[2022-01-02 23:30] VITALS: BP_SYST 130
[2022-01-04] MEDS ORDERED: DICY10CA13 PO (03:52)
[2022-01-04] MEDS ORDERED: ANT30 PO (03:54)
== END 2022-01-03 03:30 | disposition left against medical advice (07) ==
LOC: SED 22:43
DX: G47.00 Insomnia, unspecified (principal); Z53.21 Procedure and treatment not carried out due to patient leaving prior to being seen by health care provider

== ENCOUNTER 2022-01-03 06:46 | Day surgery (SDC) | payer BC, SELFPAY ==
[~2022-01-03] VITALS: Ht 177.8 cm; Wt 90.7 kg
[2022-01-03] MEDS ORDERED: MEPERIDINE 100 MG INJ. 100 MG/ML VIAL ONE (09:21)
[2022-01-03] MEDS ORDERED: MIDAZOLAM HCL 5 MG/5 ML VIAL ONE (09:21)
[2022-01-03] MEDS: MIDAZOLAM HCL 5 MG/5 ML VIAL ONE ×4 (09:32→09:42)
[2022-01-03] MEDS ORDERED: DIPHENHYDRAMINE INJ 50 MG/ML VIAL ONE (09:59)
[2022-01-03 16:33] VITALS: BP_SYST 138
[2022-01-04] MEDS ORDERED: DICY10CA13 PO (03:52)
[2022-01-04] MEDS ORDERED: ANT30 PO (03:54)
== END 2022-01-03 12:50 | disposition home or self-care (01) ==
LOC: SDS 06:46 → SMU 06:48 → SDS 12:50
PROVIDERS: ATTEND Internal Medicine Gastroenterology
DX: K21.9 Gastro-esophageal reflux disease without esophagitis (principal); K29.50 Unspecified chronic gastritis without bleeding; F41.9 Anxiety disorder, unspecified; Z79.899 Other long term (current) drug therapy; Z20.822 Contact with and (suspected) exposure to COVID-19
CPT/HCPCS: 36415; 43239; 87081; 87426; 88305; 88312; 88313; 99152; G0378; J1200; J2175; J2250; U0003

== ENCOUNTER 2022-01-04 02:56 | Emergency (ER) | payer BC, SELFPAY ==
[~2022-01-04] VITALS: Ht 177.8 cm; Wt 88.5 kg
[2022-01-04 03:06] VITALS: BP_SYST 107
[2022-01-04] MEDS ORDERED: DICY10CA13 PO (03:52)
[2022-01-04] MEDS ORDERED: ANT30 PO (03:54)
[2022-01-04] MEDS ORDERED: MAG-AL HYDROX/SIMETH 30 ML UDC PO ONE (04:00)
[2022-01-04 04:12] VITALS: BP_SYST 110
[2022-01-04] MEDS ORDERED: MAG-AL HYDROX/SIMETH 30 ML UDC ONE (04:13)
== END 2022-01-04 04:12 | disposition home or self-care (01) ==
LOC: SED 02:56
DX: K29.50 Unspecified chronic gastritis without bleeding (principal); K21.9 Gastro-esophageal reflux disease without esophagitis; I10 Essential (primary) hypertension; K91.5 Postcholecystectomy syndrome
CPT/HCPCS: 99283

== ENCOUNTER 2022-09-11 09:02 | Emergency (ER) | payer BC ==
[~2022-09-11] VITALS: Ht 177.8 cm; Wt 86.2 kg
[~2022-09-11 09:02] MED LIST changes: +ANT30 PO; +DICY10CA13 PO
[2022-09-11 09:21] VITALS: BP_SYST 141
--- NOTE | 2022-09-11 09:25 | NUR ---
Patient triaged and placed in waiting room. VSS and patient appears in no acute distress at this time. Accompanied by SELF, awaiting available bed, and MD notified of need for MSE.
--- NOTE | 2022-09-11 09:30 | NUR ---
PT CAME IN FROM HOME C/O SORE THROAT AND TROUBLE SLEEPING FOR SEVERAL DAYS. STATES HE WAS AT [facility] THIS MORNING FOR GERD AND HAD PROTONIX AND A GI COCTAIL. PT PRESENTS ANXIOUS, PACING. PT IS AMBULATORY, AAOX4, VSS
--- NOTE | 2022-09-11 09:45 | NUR ---
Patient to ER bed H1 to gown for evaluation. Side rails up.
--- NOTE | 2022-09-11 09:50 | NUR ---
ER DR. LOVING AT THE BEDSIDE EXAMINING PT
[2022-09-11] MEDS ORDERED: BENZ1LOZ73 PO (10:10)
[2022-09-11] MEDS ORDERED: LORA-259 PO (10:10)
--- NOTE | 2022-09-11 10:27 | NUR ---
Patient given written and verbal discharge instructions and verbalizes understanding. ER MD discussed with patient the results and treatment provided. Patient in stable condition. ID arm band removed. Rx of ATIVAN AND CEPACOL LOZENGES given. Patient educated on pain management and to follow up with PMD. Pain Scale 0/10. Opportunity for questions provided and answered. Medication side effect fact sheet provided.
== END 2022-09-11 10:27 | disposition home or self-care (01) ==
LOC: SED 09:02
DX: J02.9 Acute pharyngitis, unspecified (principal); G47.00 Insomnia, unspecified; I10 Essential (primary) hypertension; K21.9 Gastro-esophageal reflux disease without esophagitis; Z79.899 Other long term (current) drug therapy
CPT/HCPCS: 99283

== ENCOUNTER 2023-12-27 13:07 | Emergency (ER) | payer BC ==
[~2023-12-27] VITALS: Ht 177.8 cm; Wt 81.6 kg
[~2023-12-27 13:07] MED LIST changes: +BENZ1LOZ73 PO; +DICY-14 PO; -DICY10CA13 PO; +LORA-259 PO
[2023-12-27 13:49] VITALS: BP_SYST 138; PULSE 115; RESP 22; TEMP 97.4; O2SAT 98
[2023-12-27] MEDS ORDERED: IBUP-1971 PO (15:30)
[2023-12-27] MEDS: HYDROcodone/ACETAMIN 10-325 MG TAB PO ONE (15:49)
[2023-12-27 15:50] VITALS: BP_SYST 138; PULSE 115; RESP 22; TEMP 97.4; O2SAT 98
== END 2023-12-27 15:51 | disposition home or self-care (01) ==
LOC: SED 13:07
DX: J02.9 Acute pharyngitis, unspecified (principal); I10 Essential (primary) hypertension; K21.9 Gastro-esophageal reflux disease without esophagitis; Z79.899 Other long term (current) drug therapy
CPT/HCPCS: 99283

== ENCOUNTER 2024-01-22 10:04 | Emergency (ER) | payer BC ==
[~2024-01-22] VITALS: Ht 177.8 cm; Wt 81.6 kg
[2024-01-22 10:11] VITALS: BP_SYST 128; PULSE 100; RESP 16; TEMP 97.2; O2SAT 96
[2024-01-22] MEDS: LORazepam 1 MG TABLET PO ONE (10:34)
[2024-01-22] MEDS: MAG HYDROX/AL HYDROX/SIMETH 30 ML, DICYCLOMINE HCL 20 MG, LIDOCAINE VISCOUS 2% 15ML (PO... PO ONE (10:35)
[2024-01-22] MEDS: KETOROLAC TROMETHAMINE 60 MG/2 ML VIAL IM ONE (10:42)
[2024-01-22] MEDS ORDERED: ONDA-8 TL (11:37)
[2024-01-22] MEDS ORDERED: SUCR1ORA4 PO (11:37)
[2024-01-22 11:50] VITALS: BP_SYST 128; PULSE 100; RESP 16; TEMP 97.2; O2SAT 96
== END 2024-01-22 11:51 | disposition home or self-care (01) ==
LOC: SED 10:04
DX: K20.90 Esophagitis, unspecified without bleeding (principal); R10.13 Epigastric pain; R11.0 Nausea; G47.00 Insomnia, unspecified; K21.9 Gastro-esophageal reflux disease without esophagitis; I10 Essential (primary) hypertension; Z79.899 Other long term (current) drug therapy
CPT/HCPCS: 99283; 96372; J1885; J2001

== ENCOUNTER 2024-01-24 15:48 | Emergency (ER) | payer BC ==
[~2024-01-24] VITALS: Ht 172.7 cm; Wt 79.4 kg
[~2024-01-24 15:48] MED LIST changes: +ONDA-8 TL; +SUCR1ORA4 PO
[2024-01-24 15:50] VITALS: BP_SYST 129; PULSE 77; RESP 19; TEMP 98.2; O2SAT 98
[2024-01-24] MEDS ORDERED: LIDO15SO3 MM (17:11)
[2024-01-24] MEDS ORDERED: ANT30 PO (17:11)
[2024-01-24] MEDS ORDERED: PHEN16.233 PO (17:11)
[2024-01-24 17:14] VITALS: BP_SYST 129; PULSE 77; RESP 19; TEMP 98.2; O2SAT 98
[2024-01-25] MEDS ORDERED: OMEP40CA20 PO (16:54)
== END 2024-01-24 17:17 | disposition home or self-care (01) ==
LOC: SED 15:48
DX: R07.0 Pain in throat (principal); I10 Essential (primary) hypertension; K21.9 Gastro-esophageal reflux disease without esophagitis; Z79.899 Other long term (current) drug therapy
CPT/HCPCS: 99283

== ENCOUNTER 2024-01-25 15:51 | Emergency (ER) | payer BC ==
[~2024-01-25] VITALS: Ht 177.8 cm; Wt 81.6 kg
[~2024-01-25 15:51] MED LIST changes: +LIDO15SO3 MM; +PHEN16.233 PO
[2024-01-25 15:55] VITALS: BP_SYST 103; PULSE 96; RESP 18; TEMP 96.9; O2SAT 97
[2024-01-25] MEDS: MAG-AL HYDROX/SIMETH 30 ML UDC PO ONE (16:27)
[2024-01-25] MEDS: DICYCLOMINE HCL 10 MG/5 ML SOLUTION PO ONE (16:27)
[2024-01-25] MEDS: LIDOCAINE VISCOUS 2%, 15 ML UDC MM ONE (16:27)
[2024-01-25] MEDS ORDERED: OMEP40CA20 PO (16:54)
[2024-01-25 17:57] VITALS: BP_SYST 103; PULSE 96; RESP 18; TEMP 96.9; O2SAT 97
== END 2024-01-25 17:23 | disposition home or self-care (01) ==
LOC: SED 15:51
DX: K21.00 Gastro-esophageal reflux disease with esophagitis, without bleeding (principal); I10 Essential (primary) hypertension; Z79.899 Other long term (current) drug therapy
CPT/HCPCS: 99283; J2001

== ENCOUNTER 2024-04-09 12:41 | Emergency (ER) | payer BC ==
[~2024-04-09] VITALS: Ht 177.8 cm; Wt 77.1 kg
[~2024-04-09 12:41] MED LIST changes: -LIDO15SO3 MM; +LIDO15SO8 MM; +OMEP40CA20 PO
[2024-04-09 12:57] VITALS: BP_SYST 107; PULSE 85; RESP 21; TEMP 97.8; O2SAT 98
[2024-04-09 14:00] LABS: BASOPHILS % (AUTO) 0.6 % (0.0-2.0); EOSINOPHILS # (AUTO) 0.2 K/uL (0.0-0.4); EOSINOPHILS % (AUTO) 3.4 % (0.0-4.0); HEMATOCRIT 38.5 % (36-54); HEMOGLOBIN 13.3 g/dL (14.0-18.0); LYMPHOCYTES # (AUTO) 0.9 K/uL (1.0-5.5); LYMPHOCYTES % (AUTO) 14.9 % (20.5-51.5); MEAN CORPUSCULAR HEMOGLOBIN 31 pg (27-31); MEAN CORPUSCULAR HGB CONC 35 % (32-36); MEAN CORPUSCULAR VOLUME 91 fL (79.0-98.0); MONOCYTES # (AUTO) 0.5 K/uL (0.0-1.0); MONOCYTES % (AUTO) 8.5 % (1.7-9.3); NEUTROPHILS # (AUTO) 4.5 K/uL (1.8-7.7); NEUTROPHILS % (AUTO) 72.6 % (40.0-70.0); PLATELET COUNT (AUTO) 250 K/uL (130-430); RED BLOOD CELL COUNT(AUTO) 4.26 MIL/uL (4.2-6.2); RED CELL DISTRIBUTION WIDTH 14.1 % (9.0-15.0); WHITE BLOOD COUNT (AUTO) 6.2 K/uL (4.8-10.8)
[2024-04-09 14:18] LABS: ALBUMIN 3.7 g/dL (3.4-4.8); BILIRUBIN,DIRECT 0.2 mg/dL (0.0-0.3); CREATININE 1.02 mg/dL (0.55-1.30); POTASSIUM 3.1 mmol/L (3.5-5.1); TOTAL BILIRUBIN 0.9 mg/dL (0.0-1.0)
[2024-04-09] MEDS: MORPHINE 2 MG/ML INJ. SYRINGE IVP ONE (15:36)
[2024-04-09] MEDS ORDERED: AUG875 PO (16:32)
[2024-04-09] MEDS ORDERED: ACET1TAB93 PO (16:32)
[2024-04-09] MEDS ORDERED: METH-776 PO (16:32)
[2024-04-09 16:45] VITALS: BP_SYST 125; PULSE 76; RESP 21; TEMP 98; O2SAT 98
== END 2024-04-09 16:59 | disposition home or self-care (01) ==
LOC: SED 12:41
DX: R07.0 Pain in throat (principal); R05.9 Cough, unspecified; M54.2 Cervicalgia; K21.9 Gastro-esophageal reflux disease without esophagitis; I10 Essential (primary) hypertension
CPT/HCPCS: 99285; 96374; 70491; 80076; 80048; 85025; 86308; 36415; J2270; Q9967

== ENCOUNTER 2024-04-16 16:00 | Emergency (ER) | payer BC, MEDICAID ==
[~2024-04-16] VITALS: Ht 172.7 cm; Wt 62.6 kg
[~2024-04-16 16:00] MED LIST changes: +AUG875 PO; +METH-776 PO
[2024-04-16 16:24] VITALS: BP_SYST 159; PULSE 77; RESP 19; TEMP 96.9; O2SAT 95
[2024-04-16 16:29] VITALS: BP_SYST 159; PULSE 77; RESP 19; TEMP 96.9; O2SAT 95
[2024-04-16] MEDS: DEXAMETHASONE SOD PHOSPHATE 10 MG/ML VIAL IM ONE (16:39)
== END 2024-04-16 16:40 | disposition home or self-care (01) ==
LOC: SED 16:00
DX: J02.9 Acute pharyngitis, unspecified (principal); K21.9 Gastro-esophageal reflux disease without esophagitis; I10 Essential (primary) hypertension; F41.9 Anxiety disorder, unspecified; F32.A Depression, unspecified; Z79.899 Other long term (current) drug therapy; Z79.2 Long term (current) use of antibiotics
CPT/HCPCS: 99283; 96372; J1100

== ENCOUNTER 2024-04-17 04:35 | Emergency (ER) | payer BC, MEDICAID ==
[~2024-04-17] VITALS: Ht 177.8 cm; Wt 72.6 kg
[2024-04-17 04:40] VITALS: BP_SYST 138; PULSE 78; RESP 20; TEMP 97.9; O2SAT 97
[2024-04-17 04:45] VITALS: BP_SYST 138; RESP 20; TEMP 97.9; O2SAT 97
== END 2024-04-17 04:52 | disposition home or self-care (01) ==
LOC: SED 04:35
DX: M79.10 Myalgia, unspecified site (principal); K21.9 Gastro-esophageal reflux disease without esophagitis; I10 Essential (primary) hypertension; F41.9 Anxiety disorder, unspecified; F32.A Depression, unspecified; Z79.899 Other long term (current) drug therapy; Z79.2 Long term (current) use of antibiotics
CPT/HCPCS: 99281

== ENCOUNTER 2024-08-23 16:43 | Emergency (ER) | payer BC, MEDICAID ==
[~2024-08-23] VITALS: Ht 177.8 cm; Wt 81.6 kg
[~2024-08-23 16:43] MED LIST changes: -ESOM40CA53 PO; +ESOM40CA65 PO
[2024-08-23 17:08] LABS: BASOPHILS % (AUTO) 0.5 % (0.0-2.0); EOSINOPHILS % (AUTO) 0.3 % (0.0-4.0); HEMATOCRIT 46.4 % (36-54); HEMOGLOBIN 16.3 g/dL (14.0-18.0); LYMPHOCYTES # (AUTO) 1.1 K/uL (1.0-5.5); LYMPHOCYTES % (AUTO) 18.6 % (20.5-51.5); MEAN CORPUSCULAR HEMOGLOBIN 33 pg (27-31); MEAN CORPUSCULAR HGB CONC 35 % (32-36); MEAN CORPUSCULAR VOLUME 95 fL (79.0-98.0); MONOCYTES # (AUTO) 0.4 K/uL (0.0-1.0); NEUTROPHILS # (AUTO) 4.5 K/uL (1.8-7.7); NEUTROPHILS % (AUTO) 74.6 % (40.0-70.0); PLATELET COUNT (AUTO) 285 K/uL (130-430); RED CELL DISTRIBUTION WIDTH 12.9 % (9.0-15.0)
[2024-08-23 17:21] LABS: ALBUMIN 4.1 g/dL (3.4-4.8); CALCIUM 9.6 mg/dL (8.4-11.0); CREATININE 1.09 mg/dL (0.55-1.30); POTASSIUM 3.7 mmol/L (3.5-5.1); TOTAL BILIRUBIN 0.5 mg/dL (0.0-1.0); TOTAL PROTEIN, SERUM 7.2 g/dL (6.4-8.3)
[2024-08-23] MEDS: MAG-AL HYDROX/SIMETH 30 ML UDC PO ONE (17:21)
[2024-08-23] MEDS: ONDANSETRON 4 MG ODT TAB PO ONE (17:22)
[2024-08-23 17:28] VITALS: BP_SYST 129; PULSE 85; RESP 20; TEMP 98.6; O2SAT 96
[2024-08-23] MEDS ORDERED: PANTOPRAZOLE SODIUM 40 MG TAB PO ONE (19:09)
[2024-08-23] MEDS: PANTOPRAZOLE SODIUM 40 MG TAB PO ONE (19:11)
[2024-08-23] MEDS: LORazepam 2 MG/ML VIAL IM ONE (19:11)
[2024-08-23 20:05] VITALS: BP_SYST 92; PULSE 86; RESP 20; TEMP 98.6; O2SAT 98
== END 2024-08-23 20:05 | disposition home or self-care (01) ==
LOC: SED 16:43
DX: K21.9 Gastro-esophageal reflux disease without esophagitis (principal); F41.9 Anxiety disorder, unspecified; I10 Essential (primary) hypertension; Z79.01 Long term (current) use of anticoagulants; Z79.52 Long term (current) use of systemic steroids; Z79.899 Other long term (current) drug therapy
CPT/HCPCS: 99284; 80053; 83690; 85025; 36415; 93005; 96372; Q0162; J2060